=== PATIENT | female | born 1945 | race Caucasian/White ===

== ENCOUNTER 2023-03-24 08:50 | Emergency (ER) | payer OTHER ==
[~2023-03-24] VITALS: Ht 147.3 cm; Wt 37.0 kg
[2023-03-24 10:01] LABS: Basophils # (auto) 0 10 ^3/uL (0-0.2); Eosinophils # (auto) 0 10 ^3/uL (0-0.8); Hemoglobin 11.7 g/dL (12.2-16.2); Lymphocytes # (auto) 1.1 10 ^3/uL (0.4-5.4); Mean Corpuscular Volume 71.1 fL (80.0-100.0); Monocytes # (auto) 0.6 10 ^3/uL (0-1.3); Neutrophils # (auto) 4.8 10 ^3/uL (1.6-8.6); Nucleated Red Blood Cells % 0.1 %
[2023-03-24 10:04] LABS: Basophils % (auto) 0.1 % (0.0-2.0); Eosinophils % (auto) 0.5 % (0.0-7.0); Hematocrit 36.5 % (36.0-46.0); Lymphocytes % (auto) 16.9 % (10.0-50.0); Mean Corpuscular Hemoglobin 22.8 pg (28.0-32.0); Mean Corpuscular Hgb Conc. 32.1 g/dL (32.0-36.0); Monocytes % (auto) 9.1 % (0.0-12.0); Neutrophils % (auto) 73.4 % (37.0-80.0); Red Blood Cells 5.14 10^6/uL (4.0-5.20); Red Cell Distribution Width 19.6 % (11.8-14.3); White Blood Cell 6.5 10^3/uL (4.4-10.8)
[2023-03-24 10:31] LABS: Calcium 8.7 mg/dL (8.5-10.1); Magnesium 2.4 mg/dL (1.6-2.6); Potassium 3.9 mmol/L (3.5-5.1)
[2023-03-24 10:37] LABS: BUN/Creatinine Ratio 29.6 (10.0-20.0); Bilirubin, Total 0.5 mg/dL (0.2-1.0); Total Protein 6.6 g/dL (6.4-8.2)
[2023-03-24 15:02] LABS: Urine Bacteria NONE SEEN /hpf (None Seen); Urine Blood Negative /uL (Negative); Urine Mucus FEW (None Seen); Urine Specific Gravity 1.022 (1.001-1.035); Urine WBC 29 /hpf (0 - 5)
[2023-03-24] MEDS ORDERED: CIPR-173 PO (16:25)
[2023-03-24 18:04] VITALS: BP 121/79
== END 2023-03-24 18:05 ==
LOC: ER 08:50 → EDBD 08:50 → ER 18:05
DX: R63.0 Anorexia (principal); R62.7 Adult failure to thrive
CPT/HCPCS: 36415; 71045; 74176; 80053; 81001; 83735; 83880; 84484; 85025

== ENCOUNTER 2023-04-24 13:05 | Emergency (ER) | payer OTHER ==
[~2023-04-24] VITALS: Ht 152.4 cm; Wt 35.5 kg
[~2023-04-24 13:05] MED LIST: CIPR-173 PO
[2023-04-24 16:16] LABS: Basophils # (auto) 0.1 10 ^3/uL (0-0.2); Eosinophils # (auto) 0.1 10 ^3/uL (0-0.8); Eosinophils % (auto) 0.9 % (0.0-7.0); Hemoglobin 12.7 g/dL (12.2-16.2); Lymphocytes # (auto) 1.3 10 ^3/uL (0.4-5.4); Lymphocytes % (auto) 14.4 % (10.0-50.0); Mean Corpuscular Hemoglobin 23.4 pg (28.0-32.0); Mean Corpuscular Hgb Conc. 31.8 g/dL (32.0-36.0); Mean Corpuscular Volume 73.4 fL (80.0-100.0); Monocytes # (auto) 0.8 10 ^3/uL (0-1.3); Monocytes % (auto) 9.4 % (0.0-12.0); Neutrophils # (auto) 6.6 10 ^3/uL (1.6-8.6); Neutrophils % (auto) 74.3 % (37.0-80.0); Nucleated Red Blood Cells % 0.1 %; Red Blood Cells 5.44 10^6/uL (4.0-5.20); Red Cell Distribution Width 20.4 % (11.8-14.3); White Blood Cell 8.9 10^3/uL (4.4-10.8)
[2023-04-24 16:36] LABS: Albumin 3.6 g/dL (3.4-5.0); Calcium 9.3 mg/dL (8.5-10.1); Potassium 4.3 mmol/L (3.5-5.1)
[2023-04-24 16:39] LABS: Bilirubin, Total 0.4 mg/dL (0.2-1.0)
[2023-04-24 19:17] LABS: Urine Bacteria NONE SEEN /hpf (None Seen); Urine Blood Negative /uL (Negative); Urine Mucus FEW (None Seen); Urine Specific Gravity 1.023 (1.001-1.035); Urine WBC 11 /hpf (0 - 5)
[2023-04-24] MEDS ORDERED: ALPRAZolam 0.25 MG TAB PO ONE (21:00)
[2023-04-24] MEDS ORDERED: ALPRAZolam 0.25 MG TAB PO PRN (21:30)
[2023-04-25 10:48] VITALS: BP 147/65
== END 2023-04-25 11:18 | disposition short-term general hospital (02) ==
LOC: ER 13:05
DX: R45.851 Suicidal ideations (principal)
CPT/HCPCS: 36415; 71045; 80053; 81001; 85025

== ENCOUNTER → 2024-02-26 | Outpatient (CLI) | payer OTHER ==
[2024-02-26 08:17] LABS: Basophils # (auto) 0 10 ^3/uL (0-0.2); Basophils % (auto) 0.7 % (0.0-2.0); Eosinophils # (auto) 0.1 10 ^3/uL (0-0.8); Eosinophils % (auto) 1.9 % (0.0-7.0); Hematocrit 44.7 % (36.0-46.0); Hemoglobin 14.8 g/dL (12.2-16.2); Lymphocytes # (auto) 1.2 10 ^3/uL (0.4-5.4); Lymphocytes % (auto) 19.4 % (10.0-50.0); Mean Corpuscular Hemoglobin 29.9 pg (28.0-32.0); Mean Corpuscular Hgb Conc. 33.2 g/dL (32.0-36.0); Monocytes # (auto) 0.5 10 ^3/uL (0-1.3); Monocytes % (auto) 8.8 % (0.0-12.0); Neutrophils # (auto) 4.3 10 ^3/uL (1.6-8.6); Neutrophils % (auto) 69.2 % (37.0-80.0); Nucleated Red Blood Cells % 0.2 %; Red Blood Cells 4.96 10^6/uL (4.0-5.20); Red Cell Distribution Width 13.2 % (11.8-14.3); White Blood Cell 6.2 10^3/uL (4.4-10.8)
[2024-02-26 08:47] LABS: Urine Bacteria MANY /hpf (None Seen); Urine Blood 1+ /uL (Negative); Urine Budding Yeast OCCASIONAL /hpf (None Seen); Urine Clarity Ex.Turbid (Clear); Urine Color Light-Orange (Yellow); Urine Mucus MANY (None Seen); Urine Protein, UAD 1+ (Negative); Urine Urobilinogen Normal (Negative); Urine WBC 611 /hpf (0 - 5); Urine WBC Clumps PRESENT /hpf (None Seen); Urine pH 5.5 (5.0-9.0)
[2024-02-26 09:15] LABS: Alanine Aminotransferase 12 U/L (7-40); Albumin 4.2 g/dL (3.2-4.8); Alkaline Phosphatase 100 U/L (46-116); Anion Gap 5 (5-15); Aspartate Aminotransferase 13 U/L (13-40); BUN/Creatinine Ratio 16.9 (10.0-20.0); Blood Urea Nitrogen 12 mg/dL (9-23); Calcium 9.9 mg/dL (8.5-10.1); Carbon Dioxide 26 mmol/L (20-30); Chloride 109 mmol/L (98-107); Glucose 106 mg/dL (74-106); LDL Cholesterol 175 mg/dL (< 100); Sodium 140 mmol/L (136-145); Triglycerides 99 mg/dL (< 150)
[2024-02-26 09:16] LABS: Bilirubin, Total 0.6 mg/dL (0.2-1.0); Cholesterol 244 mg/dL (< 200); HDL Cholesterol 57 mg/dL (40-59); Total Protein 6.8 g/dL (5.7-8.2)
== END | disposition home or self-care (01) ==
LOC: LAB 07:52
PROVIDERS: ATTEND Internal Medicine
DX: Z00.00 Encounter for general adult medical examination without abnormal findings (principal); F31.9 Bipolar disorder, unspecified; F41.9 Anxiety disorder, unspecified; N39.0 Urinary tract infection, site not specified; D64.9 Anemia, unspecified
CPT/HCPCS: 36415; 80053; 80061; 81001; 83036; 84443; 85025; 87086

== ENCOUNTER → 2024-07-29 | Outpatient (CLI) | payer OTHER ==
[2024-07-29 08:54] LABS: Cholesterol 227 mg/dL (< 200); Folate (Folic Acid) 14.32 ng/mL (>5.38)
[2024-07-29 08:55] LABS: Triglycerides 126 mg/dL (< 150)
[2024-07-29 08:56] LABS: LDL Cholesterol 171 mg/dL (< 100)
[2024-07-29 08:57] LABS: HDL Cholesterol 47 mg/dL (40-59)
[2024-07-29 12:37] LABS: Urine Bacteria MOD /hpf (None Seen); Urine Blood TRACE /uL (Negative); Urine Clarity Turbid (Clear); Urine Color Colorless (Yellow); Urine Protein, UAD Negative (Negative); Urine Specific Gravity 1.006 (1.001-1.035); Urine Urobilinogen Normal (Negative); Urine WBC 8 /hpf (0 - 5); Urine pH 5.5 (5.0-9.0)
== END | disposition home or self-care (01) ==
LOC: LAB 07:35
PROVIDERS: ATTEND Internal Medicine
DX: F41.9 Anxiety disorder, unspecified (principal); F31.9 Bipolar disorder, unspecified; Z00.00 Encounter for general adult medical examination without abnormal findings
CPT/HCPCS: 36415; 80061; 81001; 82306; 82607; 82746

== ENCOUNTER → 2024-08-01 | Outpatient (CLI) | payer OTHER | END | disposition home or self-care (01) | LOC: LAB 15:12 | PROVIDERS: ATTEND Internal Medicine | DX: N39.0 Urinary tract infection, site not specified (principal) | CPT/HCPCS: 87086 ==

== ENCOUNTER 2024-11-15 05:49 | Emergency (ER) | payer OTHER ==
[~2024-11-15] VITALS: Ht 147.3 cm; Wt 36.9 kg
--- NOTE | 2024-11-15 07:47 | DVH ---
CLINICAL INFORMATION: 79 years old, Female; fall injury. TECHNIQUE: Axial imaging was obtained through the brain without contrast. Coronal and sagittal refor matted images were obtained, reviewed, and stored. Images were reviewed in brain and bone windows. A ll CT scans at this medical facility are performed using dose modulation techniques as appropriate to a performed exam including the following: Automated exposure control was utilized; adjustment of the MA and/or KV according to patient size; and use of iterative reconstruction technique. CTDIvol = 49.56 mGy DLP = 793.55 mGy-cm COMPARISON: None FINDINGS: There is no acute intracranial hemorrhage or extraaxial fluid collection. No mass effect o r midline shift. Scattered areas of hypoattenuation are seen in the periventricular and subcortical w danyel matter, which are nonspecific but most likely sequelae of small vessel ischemic disease. Atrophi c changes with prominence of the ventricles and widening of the sulci. The calvarium is unremarka ble. Paranasal sinuses and mastoid air cells are clear. IMPRESSION: 1. No CT evidence of acute intracranial abnormality. 2. Nonacute findings as detailed above.
--- NOTE | 2024-11-15 07:51 | DVH ---
EXAM: XR Chest, 1 View CLINICAL INDICATION: SOB TECHNIQUE: Frontal view of the chest. COMPARISON: XY CHEST PORTABLE on DOS: 04/24/23, XY CHEST PORTABLE on DOS: 03/24/23 FINDINGS: LUNGS AND PLEURAL SPACES: Right super hilar airspace disease could be pneumonia. Underlying nodules cannot be excluded. No pneumothorax. HEART: Unremarkable. No cardiomegaly. MEDIASTINUM: Unremarkable. Normal mediastinal contour. BONES/JOINTS: Unremarkable. No acute fracture. OTHER FINDINGS: . . IMPRESSION: Right super hilar airspace disease could be pneumonia. Underlying nodules cannot be excluded. HS:Y
--- NOTE | 2024-11-15 07:53 | DVH ---
EXAM: XR Right Shoulder Complete, 2 or More Views CLINICAL INDICATION: FALL TECHNIQUE: Two or more views of the right shoulder. COMPARISON: None FINDINGS: BONES/JOINTS: Focal regularity of the distal clavicle and create to be ossific could be not displace d fractures. Clinical correlation with point tenderness is recommended. No dislocation. SOFT TISSUES: Unremarkable. OTHER FINDINGS: . . IMPRESSION: Focal regularity of the distal clavicle and create to be ossific could be not displaced fractures. Cl inical correlation with point tenderness is recommended. HS:Y
[2024-11-15 08:02] VITALS: TEMP 98.3
--- NOTE | 2024-11-15 08:15 | ED.PDOC ---
History of Present Illness HPI Comments 79 y/o F, with a Hx of anemia, anxiety, breast CA s/p mastectomy, dementia, MDD, seizures, and snf resident, is [id number] relatives for c/o generalized weakness, fatigue, shortness of breath, and right shoulder and upper arm pain s/p mechanica fall and injury, today. Per relatives, patient has been weak and fatigue since 11/05/24 and sustained right shoulder and upper arm pain after she endured 2x unwitnessed mechanical falls at SNF she reside in. Within the past 2x days, patient was noted to have begun having difficulty breathing and getting more progressively weak and being unable to move her right shoulder and arm as well. Patient has no other reported additional injuries, fever, chills, nausea, vomiting, urinary symptoms, or other associated symptoms or modifiers at this time. 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 Family History Family History: Reviewed,noncontributory to illness Social History Smoker: Non-Smoker Alcohol: Denies ETOH Use Drugs: Denies Drug Use Lives In: [facility] Constitutional: reports: fatigue Respiratory: reports: shortness of breath Neurological: reports: weakness Musculoskeletal: reports: others (right shoulder and upper arm pain w/associated decrease range of motion ) All Other Systems: Reviewed and Negative (negative unless otherwise stated above or in HPI) Physical Exam General Appearance: No Apparent Distress, Thin, Other (patient is quiet, not talkative at time of assessment) HEENT: Normal ENT Inspection, Pharynx Normal, TMs Normal Neck: Full Range of Motion, Non-Tender, Normal, Normal Inspection Respiratory: Chest Non-Tender, Lungs Clear, No Accessory Muscle Use, No Respiratory Distress, Normal Breath Sounds Cardiovascular: No Edema, No JVD, No Murmur, No Gallop, Normal Peripheral Pu lses, Regular Rate/Rhythm Breast Exam: Deferred Gastrointestinal: No Organomegaly, Non Tender, No Pulsatile Mass, Normal Bowel Sounds, Soft Genitalia: Deferred Pelvic: Deferred Rectal: Deferred Extremities: Decreased range of motion (range of motion of right shoulder is decreased by 50%), No calf tenderness, Normal capillary refill, Non-tender, No pedal edema Musculoskeletal : Apperance: Normal Neurologic: Alert, buggy operator II-XII nml as Tested, No Motor Deficits, Normal Affect, Normal Mood, No Sensory Deficits Cerebellar Function: Normal Reflexes: Normal Skin: Dry, Normal Color, Warm Lymphatic: No Adenopathy Was a procedure done? Was a procedure done?: No EKG EKG : Pulse Rate (adult): 85 [place]: Normal Cardiac Rhythm: NSR Block: None Hypertrophy: None ST: Normal Differential Dx Considerations may include: viral syndrome, URI, fractures, dislocation, contusion, bruising, PNA, bronchitis, pleural effusions, covid19 X-Ray, Labs, Meds, VS Vital Signs Date Time Temp Pulse Resp B/P (MAP) Pulse Ox O2 Delivery O2 Flow Rate FiO2 11/15/24 08:15 85 11/15/24 08:02 Room Air* 0 21 11/15/24 08:02 98.3 85 14 121/65 (83) 92 98.3 11/15/24 08:02 85 14 92 Room Air 11/15/24 06:10 85 11/15/24 05:58 98.6 88 12 114/72 (86) 92 Lab Test 11/15/24 10:07 11/15/24 07:54 11/15/24 07:07 11/15/24 06:02 Range/Units Troponin I High Sensitivity Pending 3 L </=34 ng/L White Blood Count 6.9 4.4-10.8 10^3/uL Red Blood Count 4.81 4.0-5.20 10^6/uL Hemoglobin 14.8 12.2-16.2 g/dL Hematocrit 43.2 36.0-46.0 % Mean Corpuscular Volume 89.9 80.0-100.0 fL Mean Corpuscular Hemoglobin 30.8 28.0-32.0 pg Mean Corpuscular Hemoglobin Concent 34.3 32.0-36.0 g/dL Red Cell Distribution Width 12.5 11.8-14.3 % Platelet Count 414 140-450 10^3/uL Mean Platelet Volume 7.3 6.9-10.8 fL Neutrophils (%) (Auto) 72.7 37.0-80.0 % Lymphocytes (%) (Auto) 13.0 10.0-50.0 % Monocytes (%) (Auto) 11.9 0.0-12.0 % Eosinophils (%) (Auto) 1.8 0.0-7.0 % Basophils (%) (Auto) 0.6 0.0-2.0 % Neutrophils # (Auto) 5.0 1.6-8.6 10 ^3/uL Lymphocytes # (Auto) 0.9 0.4-5.4 10 ^3/uL Monocytes # (Auto) 0.8 0-1.3 10 ^3/uL Eosinophils # (Auto) 0.1 0-0.8 10 ^3/uL Basophils # (Auto) 0 0-0.2 10 ^3/uL Nucleated Red Blood Cells 0.1 % Sodium Level 141 136-145 mmol/L Potassium Level 3.3 L 3.5-5.1 mmol/L Chloride Level 108 H 98-107 mmol/L Carbon Dioxide Level 26 20-31 mmol/L Anion Gap 7 5-15 Blood Urea Nitrogen 15 9-23 mg/dL Creatinine 0.66 0.550-1.02 mg/dL Glomerular Filtration Rate Calc 89 >90 mL/min BUN/Creatinine Ratio 22.7 H 10.0-20.0 Serum Glucose 111 H 74-106 mg/dL Calcium Level 10.1 8.7-10.4 mg/dL Total Bilirubin 0.8 0.2-1.0 mg/dL Aspartate Amino Transferase (AST) 11 L 13-40 U/L Alanine Aminotransferase (ALT) 9 7-40 U/L Alkaline Phosphatase 87 46-116 U/L Total Protein 7.1 5.7-8.2 g/dL Albumin 4.0 3.2-4.8 g/dL Urine Color Yellow Yellow Urine Clarity Turbid H Clear Urine pH 5.5 5.0-9.0 Urine Specific [place] 1.024 1.001-1.035 Urine Protein Trace H Negative Urine Ketones 1+ H Negative Urine Blood Negative Negative /uL Urine Nitrite 2+ H Negative Urine Bilirubin Negative Negative Urine Urobilinogen 4 H Negative mg/dL Urine Leukocyte Esterase 3+ Negative /uL Urine RBC 8 0 - 4 /hpf Urine WBC 112 0 - 5 /hpf Urine Squamous Epithelial Cells Mod <5 /hpf Urine Bacteria Many H None Seen /hpf Urine Hyaline Casts Few 0 - 2 /lpf Urine Mucus Few None Seen Urine Glucose Normal Normal mg/dL POC Glucose 102 70-106 mg/dl [place] [address] Ph: [phone] DIAGNOSTIC IMAGING Diagnostic Imaging Report : [id number] Signed PATIENT: ALBIN WASHINGTON ACCT: [id number] UNIT: [id number] : 1945 LOC: ER ROOM / BED: / AGE / SEX: 79 / F ADM STATUS: REG ER SERVICE [id number] ORDERING PHYSICIAN: JORDANA OLIVEIRA MD PROCEDURE(s): RSHD2 - R SHOULDER 2+ VIEW XRAY REASON: FALL ORDER NUMBER(s): [id number], ACCESSION NUMBER(s): [id number] EXAM: XR Right Shoulder Complete, 2 or More Views CLINICAL INDICATION: FALL TECHNIQUE: Two or more views of the right shoulder. COMPARISON: None FINDINGS: BONES/JOINTS: Focal regularity of the distal clavicle and create to be ossific could be not displaced fractures. Clinical correlation with point tenderness is recommended. No dislocation. SOFT TISSUES: Unremarkable. OTHER FINDINGS: . . IMPRESSION: Focal regularity of the distal clavicle and create to be ossific could be not displaced fractures. Clinical correlation with point tenderness is recommended. HS:Y ATED BY: LETI LIPSCOMB MD DICTATED DATE/TIME: 11/15/24749 SIGNED BY: LETI LIPSCOMB MD SIGNED DATE/TIME: 11/15/24749 CC: [address] [address] Ph: [phone] DIAGNOSTIC IMAGING Diagnostic Imaging Report : [id number] Signed PATIENT: ALBIN WASHINGTON ACCT: [id number] UNIT: [id number] : 1945 LOC: ER ROOM / BED: / AGE / SEX: 79 / F ADM STATUS: REG ER SERVICE 6 ORDERING PHYSICIAN: JORDANA OLIVEIRA MD PROCEDURE(s): HWOCT - HEAD WITHOUT CONTRAST REASON: FALL ORDER NUMBER(s): [id number], ACCESSION NUMBER(s): [id number] CLINICAL INFORMATION: 79 years old, Female; fall injury. TECHNIQUE: Axial imaging was obtained through the brain without contrast. Coronal and sagittal reformatted images were obtained, reviewed, and stored. Images were reviewed in brain and bone windows. All CT scans at this medical facility are performed using dose modulation techniques as appropriate to a performed exam including the following: Automated exposure control was utilized; adjustment of the MA and/or KV according to patient size; and use of iterative reconstruction technique. CTDIvol = 49.56 mGy DLP = 793.55 mGy-cm COMPARISON: None FINDINGS: There is no acute intracranial hemorrhage or extraaxial fluid collection. No mass effect or midline shift. Scattered areas of hypoattenuation are seen in the periventricular and subcortical white matter, which are nonspecific but most likely sequelae of small vessel ischemic disease. Atrophic changes with prominence of the ventricles and widening of the sulci. The calvarium is unremarkable. Paranasal sinuses and mastoid air cells are clear. IMPRESSION: 1. No CT evidence of acute intracranial abnormality. 2. Nonacute findings as detailed above. ATED BY: NATHANIEL GHOSH DO DICTATED DATE/TIME: 11/15/24743 SIGNED BY: NATHANIEL GHOSH DO SIGNED DATE/TIME: 11/15/24743 CC: [place] [address] Ph: [phone] DIAGNOSTIC IMAGING Diagnostic Imaging Report : [id number] Signed PATIENT: ALBIN WASHINGTON ACCT: [id number] UNIT: [id number] : 1945 LOC: ER ROOM / BED: / AGE / SEX: 79 / F ADM STATUS: REG ER SERVICE 6 ORDERING PHYSICIAN: JORDANA OLIVEIRA MD PROCEDURE(s): CXRP - CHEST PORTABLE REASON: SOB ORDER NUMBER(s): [id number], ACCESSION NUMBER(s): [id number] EXAM: XR Chest, 1 View CLINICAL INDICATION: SOB TECHNIQUE: Frontal view of the chest. COMPARISON: XY CHEST PORTABLE on DOS: 04/24/23, XY CHEST PORTABLE on DOS: 03/24/23 FINDINGS: LUNGS AND PLEURAL SPACES: Right super hilar airspace disease could be pneumonia. Underlying nodules cannot be excluded. No pneumothorax. HEART: Unremarkable. No cardiomegaly. MEDIASTINUM: Unremarkable. Normal mediastinal contour. BONES/JOINTS: Unremarkable. No acute fracture. OTHER FINDINGS: . . IMPRESSION: Right super hilar airspace disease could be pneumonia. Underlying nodules cannot be excluded. HS:Y ATED BY: LETI LIPSCOMB MD DICTATED DATE/TIME: 11/15/24748 SIGNED BY: LETI LIPSCOMB MD SIGNED DATE/TIME: 11/15/24748 CC: Time of 1ST Reevaluation: 07:00 Reevaluation 1ST: Unchanged Patient Education/Counseling: Other (dementia ) Family Education/Counseling: Diagnosis, Treatment Departure 1 Departure Time of Disposition: 10:43 Impression: Primary Impression: Fracture of humeral head, right, closed Additional Impression: Pulmonary nodule Disposition: 01 HOME / SELF CARE / HOMELESS Condition: Stable Additional Instructions: Thank you for visiting our Emergency Room. I wish you full and complete recovery. Please follow the following instructions: 1. Take your medication bottles with you to EVERY DOCTOR'S VISIT (including your primary doctor). 2. Please follow up with your primary doctor in 2-3 days or sooner if symptoms do not improve. 3. Please read all the papers given to you at the time of the discharge so that you understand your condition better. 4. Please note that the emergency room visits are focused and not necessarily comprehensive. Therefore, it is possible that some occult medical conditions may go undiagnosed in the ER. 5. The emergency room visits are not and should not be thought of as replacement for regular visits with your primary doctor. 6. Therefore, it is absolutely critical that you follows up with your primary doctor on regular basis to make sure you receives a complete and comprehensive care. 7. I recommended the you take the hospital discharge papers to your primary care physician and other doctors' offices with you. 8. Go to your nearest emergency room if you think your condition gets worse or you think your condition is an emergency. Discharged With: Self Critical Care Note Critical Care Time?: Yes (45 min-critical care time only) Stability Stability form required: No Heart Score Heart Score: Heart Score Response (Comments) Value History N/A 0 EKG N/A 0 Age N/A 0 Risk Factors N/A 0 Troponin N/A 0 Total 0 I personally scribed for JORDANA OLIVEIRA MD ([email or web address]) on 11/15/24 at 08:15. Electronically submitted by Levar Altman ([email or web address]). JORDANA OLIVEIRA MD Nov 15, 2024 08:15
[2024-11-15 08:18] LABS: Basophils # (auto) 0 10 ^3/uL (0-0.2); Basophils % (auto) 0.6 % (0.0-2.0); Eosinophils # (auto) 0.1 10 ^3/uL (0-0.8); Eosinophils % (auto) 1.8 % (0.0-7.0); Hematocrit 43.2 % (36.0-46.0); Hemoglobin 14.8 g/dL (12.2-16.2); Lymphocytes # (auto) 0.9 10 ^3/uL (0.4-5.4); Mean Corpuscular Hemoglobin 30.8 pg (28.0-32.0); Mean Corpuscular Hgb Conc. 34.3 g/dL (32.0-36.0); Mean Corpuscular Volume 89.9 fL (80.0-100.0); Monocytes # (auto) 0.8 10 ^3/uL (0-1.3); Monocytes % (auto) 11.9 % (0.0-12.0); Neutrophils % (auto) 72.7 % (37.0-80.0); Nucleated Red Blood Cells % 0.1 %; Platelet Count (auto) 414 10^3/uL (140-450); Red Blood Cells 4.81 10^6/uL (4.0-5.20); Red Cell Distribution Width 12.5 % (11.8-14.3); White Blood Cell 6.9 10^3/uL (4.4-10.8)
[2024-11-15 08:39] LABS: Alkaline Phosphatase 87 U/L (46-116); Anion Gap 7 (5-15); BUN/Creatinine Ratio 22.7 (10.0-20.0); Bilirubin, Total 0.8 mg/dL (0.2-1.0); Blood Urea Nitrogen 15 mg/dL (9-23); Calcium 10.1 mg/dL (8.7-10.4); Carbon Dioxide 26 mmol/L (20-31); Sodium 141 mmol/L (136-145)
[2024-11-15 08:41] LABS: Alanine Aminotransferase 9 U/L (7-40); Aspartate Aminotransferase 11 U/L (13-40); Chloride 108 mmol/L (98-107); Glucose 111 mg/dL (74-106); Potassium 3.3 mmol/L (3.5-5.1)
[2024-11-15 09:06] LABS: Urine Bacteria MANY /hpf (None Seen); Urine Blood Negative /uL (Negative); Urine Clarity Turbid (Clear); Urine Color Yellow (Yellow); Urine Hyaline Cast FEW /lpf (0 - 2); Urine Mucus FEW (None Seen); Urine Protein, UAD TRACE (Negative); Urine Specific Gravity 1.024 (1.001-1.035); Urine Squamous Epithelial Cell MOD /hpf (<5); Urine Urobilinogen 4 mg/dL (Negative); Urine WBC 112 /hpf (0 - 5); Urine pH 5.5 (5.0-9.0)
[2024-11-15 09:24] LABS: Total Protein 7.1 g/dL (5.7-8.2)
[2024-11-15 11:02] VITALS: BP 127/80; PULSE 89; RESP 15; O2SAT 95
[2024-11-15] MEDS ORDERED: ACE650RS PR (11:15)
--- NOTE | 2024-11-16 07:18 | ECG ---
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
== END 2024-11-15 11:10 | disposition home or self-care (01) ==
LOC: ER 05:49
DX: S42.391A Other fracture of shaft of right humerus, initial encounter for closed fracture (principal); F03.90 Unspecified dementia, unspecified severity, without behavioral disturbance, psychotic disturbance, mood disturbance, and anxiety; D46.9 Myelodysplastic syndrome, unspecified; F41.9 Anxiety disorder, unspecified; Z90.49 Acquired absence of other specified parts of digestive tract; Z85.3 Personal history of malignant neoplasm of breast; Z98.890 Other specified postprocedural states; W18.39XA Other fall on same level, initial encounter; Y93.89 Activity, other specified; Y92.89 Other specified places as the place of occurrence of the external cause; Y99.8 Other external cause status
CPT/HCPCS: 36415; 70450; 71045; 73030; 80053; 81001; 82962; 84484; 85025; 93005

== ENCOUNTER → 2024-12-15 | Outpatient (CLI) | payer OTHER ==
[~2024-12-15] MED LIST changes: +ACE650RS PR
== END | disposition home or self-care (01) ==
LOC: LAB 05:48
PROVIDERS: ATTEND Anesthesiology
DX: N39.0 Urinary tract infection, site not specified (principal)
CPT/HCPCS: 87086

== ENCOUNTER → 2025-01-27 | Outpatient (CLI) | payer OTHER | END | disposition home or self-care (01) | LOC: LAB 16:27 | PROVIDERS: ATTEND Nurse Practitioner | DX: N39.0 Urinary tract infection, site not specified (principal) | CPT/HCPCS: 87086 ==

== ENCOUNTER 2025-04-14 19:51 | Emergency (ER) | payer OTHER ==
[~2025-04-14] VITALS: Ht 149.9 cm; Wt 54.5 kg
[2025-04-14 20:11] VITALS: BP 104/62; PULSE 92; RESP 16; TEMP 98; O2SAT 95
--- NOTE | 2025-04-14 20:24 | ED.PDOC ---
History of Present Illness HPI Comments 79 year old Female with a Hx of Dementia, HTN, and Depression was BIBA for the c/c of a Fall Injury. Per EMS pt was at [facility] facility where she decided to get up from her bed to retrieve a second blanket, where she had a spontaneous mechanical fall. Per EMS pt fell onto a dresser before hitting the floor. Pt is noted to be a poor historian and is A&Ox2 at this time. No other associated symptoms, modifiers, recent injuries or sick contacts present at this time. Chief Complaint: Fall Injury Time Seen by MD: 20:18 Primary Care Provider: KAREL Reviewed Notes: Nurses Notes, Marketing Researcher Notes, Medications, Allergies Allergies: Coded Allergies: Pseudoephedrine (Verified Allergy, Unknown, 11/15/24) Home Meds Active Scripts Acetaminophen (Tylenol) 650 Mg Rc, 650 MG SD Q6HPRN PRN for 12 Days, #90 SUPP .RECT Prov:JORDANA OLIVEIRA MD 11/15/24 Ciprofloxacin Hcl (Cipro) 500 Mg Tab, 500 MG PO BID for 10 Days, #20 TAB Prov:LORNA MORRISSEY MD 03/24/23 Information Source: Patient, Emergency Med Personnel Mode of Arrival: EMS Severity: Moderate Timing: Hours Duration: Since onset, Hours Prehospital treatment: Accucheck Vital Signs Vital Signs Date Time Temp Pulse Resp B/P (MAP) Pulse Ox O2 Delivery O2 Flow Rate FiO2 04/14/25 20:11 98.0 92 16 104/62 (76) 95 98.0 Physical Exam General: Awake, A&Ox2. No acute distress. Skin: Skin in warm, dry and intact. Appropriate color for ethnicity. HEENT: The head is normocephalic and atraumatic. Conjunctivae are clear without exudates or hemorrhage. Sclera is non-icteric. EOM are intact. No signs of nystagmus. Eyelids are normal in appearance without swelling or lesions. Oral mucosa is pink and moist Neck: The neck is supple with normal range of motion. No JVD. Cardiac: Heart rate and rhythm are normal. No murmurs, gallops, or rubs are auscultated. Respiratory: No signs of respiratory distress. Lung sounds are clear in all lobes bilaterally without rales, rhonchi, or wheezes. Abdominal: Abdomen is soft, non-tender without distention, guarding or rigidity. Bowel sounds are present and normoactive in all four quadrants. Extremities: Upper and lower extremities are atraumatic in appearance without deformity or edema. Neurological: The patient is awake, alert Speech is clear. There is no facial asymmetry. Pt is noted to be a poor historian due to her Dementia, no other neurological deficiencies noted at this time. Psychiatric: Appropriate mood and affect. Good judgement and insight. Review of Systems: REVIEW OF SYSTEMS: No fever, no chills, or fatigue HEENT: No sore throat, no earache, no congestion, no neck pain. Cardiac: No chest pain. No palpitations. Lungs: No shortness of breath, no cough. GI: No nausea, no vomiting, no diarrhea, no constipation, no abdominal pain : No dysuria, frequency, or urgency. No hematuria. Musculoskeletal: No joint pain , no joint swelling, no extremity edema. Skin: No rash, no itching. 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 Was a procedure done?: No Differential Dx Considerations may include: DDX includes MSK trauma, facial fractures, ICH or traumatic SAH, C-spine injury, other X-Ray, Labs, Meds, VS Vital Signs Date Time Temp Pulse Resp B/P (MAP) Pulse Ox O2 Delivery O2 Flow Rate FiO2 04/14/25 20:11 98.0 92 16 104/62 (76) 95 98.0 EXAM: CT CERVICAL WITHOUT CONTRAST HISTORY: head injury fall neck injury COMPARISON: None CTDIvol 52.41 mGy, DLP 1041.71 mGy*cm. TECHNIQUE: Multiple axial CT images of the spine were obtained using bone algorithm. Axial and coronal reformatting was done. Bone and soft tissue windows were reviewed. FINDINGS: Moderate dextroscoliosis of the cervical/thoracic spine as its apex about the T1 vertebral body. There is reversal of normal cervical lordosis. No CT evidence of definite acute fracture, spinal dislocation, or significant appearing acute subluxation is seen. The visualized paraspinal soft tissues are grossly unremarkable. Advanced degenerative changes of the cervical spine include severe disc height loss at the C5-C6 and C6-C7 levels with adjacent endplate sclerosis and anterior osteophytosis. Anterolisthesis of C5 on C6 measures 0.3 cm. Atherosclerotic vascular calcifications within the bilateral carotid bulbs and aortic arch. IMPRESSION: 1. No definite CT evidence of acute fracture or dislocation of the bony cervical spine. 2. Advanced degenerative change, reversal of lordosis and dextroscoliosis of the cervical spine. ATED BY: PAPA LEON MD DICTATED DATE/TIME: 04/14/252356 SIGNED BY: PAPA LEON MD SIGNED DATE/TIME: 04/14/252356 CC: EXAM: CT HEAD WITHOUT CONTRAST INDICATION: head injury fall neck injury TECHNIQUE: CT of the head without intravenous contrast. Radiation Dose Information: CT Dose: CTDI volume is 8.36 mGy. Dose-length product is 1041.71 mGy*cm The dose indicators for CT are the volume Computed Tomography (CT) Dose Index (CTDIvol) and the Dose Length Product (DLP), and are measured in units of mGy a nd mGy-cm, respectively. These indicators are not patient dose, but values generated from the CT scanner acquisition factors. The report includes radiation exposure data for exposures received during this examination. COMPARISON: CT HEAD WITHOUT CONTRAST on DOS: 11/15/24 FINDINGS: There is no evidence of acute intracranial hemorrhage, extra-axial collection, mass effect, midline shift, herniation or hydrocephalus. The ventricles, sulci and cisterns are age appropriate. The dailey-white differentiation is intact. Patchy periventricular and subcortical white matter hypoattenuation is nonspecific but may be related to small vessel ischemic disease. The visualized paranasal sinuses and mastoid air cells are clear. The surrounding soft tissues and osseous structures are unremarkable. IMPRESSION: 1. No acute intracranial abnormality. ATED BY: ROMY DAVIS Jr., DO DICTATED DATE/TIME: 04/14/252254 SIGNED BY: ROMY DAVIS Jr., DO SIGNED DATE/TIME: 04/14/252254 CC: Time of 1ST Reevaluation: 20:48 Reevaluation 1ST: Unchanged Patient Education/Counseling: Need For Follow Up Family Education/Counseling: No Family Present Departure 1 Departure Time of Disposition: 01:56 Impression: Primary Impression: Fall Additional Impression: Head injury Disposition: 01 HOME / SELF CARE / HOMELESS Condition: Stable Additional Instructions: ED DISCHARGE INSTRUCTIONS Instructions: Please read all instructions provided in this packet carefully. Although you have been discharged from the Emergency Department, this does not mean that you have a "clean bill of health". No definitive diagnosis for your symptoms has been made today. It is possible that you are in the process of developing a serious illness. This is why you must return to the ED without fail if any new or worsening symptoms (especially if your symptoms include chest pain, trouble breathing, abdominal pain, fever, headache, confusion, trouble seeing, or trouble walking) It is also very important that you see a primary care doctor within the next 3-5 days to follow up. If you are unable to get an appointment, return to the ED for re-evaluation. Comments Seven 9-year-old female with head injury. Patient neurologically intact other than baseline dementia. Patient well-appearing, nontoxic. Advised prompt follow-up with PCP, return to the ED with any new, worsening or concerning symptoms. Results discussed with the patient's son via phone Critical Care Note Critical Care Time?: No Stability Stability form required: No Heart Score Heart Score: Heart Score Response (Comments) Value History N/A 0 EKG N/A 0 Age N/A 0 Risk Factors N/A 0 Troponin N/A 0 Total 0 I personally scribed for NINA PIMENTEL MD ([email or web address]) on 04/14/25 at 20:24. Electronically submitted by Arnoldo Espino ([email or web address]). NINA PIMENTEL MD Apr 14, 2025 20:24
--- NOTE | 2025-04-14 22:58 | DVH ---
EXAM: CT HEAD WITHOUT CONTRAST INDICATION: head injury fall neck injury TECHNIQUE: CT of the head without intravenous contrast. Radiation Dose Information: CT Dose: CTDI volume is 8.36 mGy. Dose-length product is 1041.71 mGy*cm The dose indicators for CT are the volume Computed Tomography (CT) Dose Index (CTDIvol) and the Dose Length Product (DLP), and are measured in units of mGy and mGy-cm, respectively. These indicators are not patient dose, but values generated from the CT scanner acquisition factors. The report includes radiation exposure data for exposures received during this examination. COMPARISON: CT HEAD WITHOUT CONTRAST on DOS: 11/15/24 FINDINGS: There is no evidence of acute intracranial hemorrhage, extra-axial collection, mass effect, midline s hift, herniation or hydrocephalus. The ventricles, sulci and cisterns are age appropriate. The dailey-white differentiation is intact. Patchy periventricular and subcortical white matter hypoattenuation is nonspecific but may be related to small vessel ischemic disease. The visualized paranasal sinuses and mastoid air cells are clear. The surrounding soft tissues and osseous structures are unremarkable. IMPRESSION: 1. No acute intracranial abnormality.
--- NOTE | 2025-04-15 01:40 | DVH ---
EXAM: CT CERVICAL WITHOUT CONTRAST HISTORY: head injury fall neck injury COMPARISON: None CTDIvol 52.41 mGy, DLP 1041.71 mGy*cm. TECHNIQUE: Multiple axial CT images of the spine were obtained using bone algorithm. Axial and coron al reformatting was done. Bone and soft tissue windows were reviewed. FINDINGS: Moderate dextroscoliosis of the cervical/thoracic spine as its apex about the T1 vertebral body. Ther e is reversal of normal cervical lordosis. No CT evidence of definite acute fracture, spinal dislocation, or significant appearing acute subluxa tion is seen. The visualized paraspinal soft tissues are grossly unremarkable. Advanced degenerative changes of the cervical spine include severe disc height loss at the C5-C6 and C6-C7 levels with adjacent endplate sclerosis and anterior osteophytosis. Anterolisthesis of C5 on C6 measures 0.3 cm. Atherosclerotic vascular calcifications within the bilateral carotid bulbs and aortic arch. IMPRESSION: 1. No definite CT evidence of acute fracture or dislocation of the bony cervical spine. 2. Advanced degenerative change, reversal of lordosis and dextroscoliosis of the cervical spine.
== END 2025-04-15 13:20 | disposition home or self-care (01) ==
LOC: ER 19:51 → EDBD 19:51 → ER 04-15 02:20
DX: S09.8XXA Other specified injuries of head, initial encounter (principal); F41.9 Anxiety disorder, unspecified; F03.90 Unspecified dementia, unspecified severity, without behavioral disturbance, psychotic disturbance, mood disturbance, and anxiety; W19.XXXA Unspecified fall, initial encounter; Y93.89 Activity, other specified; Y92.89 Other specified places as the place of occurrence of the external cause; Y99.8 Other external cause status
CPT/HCPCS: 70450; 72125

== ENCOUNTER 2025-04-22 18:46 | Inpatient (IN) | payer OTHER ==
[~2025-04-22] VITALS: Ht 147.3 cm; Wt 40.6 kg
[2025-04-22] MEDS: ACETAMINOPHEN 325 MG TAB PO ONE (19:00)
--- NOTE | 2025-04-22 19:44 | ED.PDOC ---
Musculoskeletal HPI Comments 79 y/o F is BIBA for left knee pain s/p mechanical fall and injury. Per EMS report, patient is a resident of [facility]. She was reported to have had a witnessed fall by staff and injuring her left knee without lost of consciousness or head injuries. Patient is unable to bear weight and walk on left leg, due to pain. Patient has a history of anemia, anxiety, breast cancer s/p mastectomy, dementia (A&Ox1 baseline), depression, and seizures. No history fo blood thinner use. Patient has no reported additional injuries, weakness, numbness, tingling, or further associated symptoms. Chief Complaint: Lower Extremity Time Seen by MD: 18:50 Primary Care Provider: n/a Reviewed Notes: Nurses Notes, Crime Lab Analyst Notes, Medications, Allergies Allergies: Coded Allergies: Pseudoephedrine (Verified Allergy, Unknown, 11/15/24) Home Meds Active Scripts Acetaminophen (Tylenol) 650 Mg Rc, 650 MG DC Q6HPRN PRN for 12 Days, #90 SUPP.RECT Prov:JORDANA OLIVEIRA MD 11/15/24 Ciprofloxacin Hcl (Cipro) 500 Mg Tab, 500 MG PO BID for 10 Days, #20 TAB Prov:LORNA MORRISSEY MD 03/24/23 Information Source: Patient, Emergency Med Personnel Mode of Arrival: EMS Location: Left Extremity Location: Knee Timing: Hours Prehospital treatment: 12 Lead EKG, Accucheck, Paper Carrier Severity: Moderate Review of Systems: REVIEW OF SYSTEMS: No fever, no chills, or fatigue HEENT: No sore throat, no earache, no congestion, no neck pain. Cardiac: No chest pain. No palpitations. Lungs: No shortness of breath, no cough. GI: No nausea, no vomiting, no diarrhea, no constipation, no abdominal pain : No dysuria, frequency, or urgency. No hematuria. Musculoskeletal: Left knee pain, no joint swelling, no extremity edema. Skin: No rash, no itching. Neuro: No headache, no dizziness, no weakness Vital Signs Vital Signs Date Time Temp Pulse Resp B/P (MAP) Pulse Ox O2 Delivery O2 Flow Rate FiO2 04/22/25 21:11 98.7 96 16 116/68 (84) 94 98.7 Physical Exam General: Awake, alert and oriented. No acute distress. Skin: Skin in warm, dry and intact. Appropriate color for ethnicity. HEENT: The head is normocephalic and atraumatic. Conjunctivae are clear without exudates or hemorrhage. Sclera is non-icteric. EOM are intact. No signs of nystagmus. Eyelids are normal in appearance without swelling or lesions. Oral mucosa is pink and moist Neck: The neck is supple with normal range of motion. No JVD. Cardiac: Heart rate and rhythm are normal. No murmurs, gallops, or rubs are auscultated. Respiratory: No signs of respiratory distress. Lung sounds are clear in all lo bes bilaterally without rales, rhonchi, or wheezes. Abdominal: Abdomen is soft, non-tender without distention, guarding or rigidity. Bowel sounds are present and normoactive in all four quadrants. Extremities: Left knee swelling, minimal tenderness, DP pulse intact. Otherwise, remaining upper and lower extremities are atraumatic in appearance without deformity or edema. Neurological: The patient is awake, alert and oriented to person, place, and time with normal speech. Speech is clear. There is no facial asymmetry. Psychiatric: Appropriate mood and affect. Good judgement and insight. 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 Was a procedure done?: No Differential Diagnosis EXT Differential Diagnosis: Fracture, Sprain, Dislocation, Contusion, Strain X-Ray, Labs, Meds, VS Vital Signs Date Time Temp Pulse Resp B/P (MAP) Pulse Ox O2 Delivery O2 Flow Rate FiO2 04/22/25 21:11 98.7 96 16 116/68 (84) 94 98.7 04/22/25 18:48 98.3 73 18 141/64 (89) 97 98.3 [facility] [id number] [place] [id number] Ph: [phone] DIAGNOSTIC IMAGING Diagnostic Imaging Report : [id number] Signed PATIENT: ALBIN WASHINGTON ACCT: [id number] UNIT: [id number] : 1945 LOC: ER ROOM / BED: / AGE / SEX: 79 / F ADM STATUS: REG ER SERVICE 55 ORDERING PHYSICIAN: NINA PIMENTEL MD PROCEDURE(s): LKNE4 - L KNEE 4V XRAY REASON: fall pain ORDER NUMBER(s): [id number], ACCESSION NUMBER(s): [id number] CLINICAL INDICATION: fall pain TECHNIQUE: XY L KNEE 4V XRAY Comparison: None FINDINGS/IMPRESSION: : Mildly displaced partially comminuted distal metadiaphyseal femoral fracture. The visualized joint spaces are well preserved. Soft tissues are unremarkable. ATED BY: PAPA LEON MD DICTATED DATE/TIME: 04/22/252111 SIGNED BY: PAPA LEON MD SIGNED DATE/TIME: 04/22/252111 CC: Time of 1ST Reevaluation: 19:20 Reevaluation 1ST: Unchanged Patient Education/Counseling: Other (Patient has dementia) Family Education/Counseling: No Family Present Departure 1 Departure Time of Disposition: 21:34 Impression: Primary Impression: Closed comminuted intra-articular fracture of distal femur Disposition: ADMITTED INPATIENT Condition: Stable Comments Patient admitted to hospitalist service for further treatment, evaluation and monitoring. Extensive evaluation was performed in attempt to identify or rule out: (See differential diagnosis section) The following tests were ordered, and results were reviewed by me: (See melissa gnostic results section) The following test were independently interpreted by me: N/A I reviewed and agreed with the following test results read by other providers: X-ray left knee I reviewed the following notes from the pt's past medical encounters: November 15, 2024 and April 14, 2025 encounters for fracture of right humeral head and fall, respectively. Additional information was gathered from interviewing the following independent historians: EMS Discussion of management or test interpretation with external physician/other qualified health critical care educator: N/A Critical Care Note Critical Care Time?: No Stability Stability form required: No Heart Score Heart Score: Heart Score Response (Comments) Value History N/A 0 EKG N/A 0 Age N/A 0 Risk Factors N/A 0 Troponin N/A 0 Total 0 I personally scribed for NINA PIMENTEL MD ([email or web address]) on 04/22/25 at 19:44. Electronically submitted by Levar Altman ([email or web address]). I personally scribed for NINA PIMENTEL MD ([email or web address]) on 04/22/25 at 23:36. Electronically submitted by Levar Altman ([email or web address]). NINA PIMENTEL MD Apr 22, 2025 19:44
--- NOTE | 2025-04-22 21:14 | DVH ---
CLINICAL INDICATION: fall pain TECHNIQUE: XY L KNEE 4V XRAY Comparison: None FINDINGS/IMPRESSION: : Mildly displaced partially comminuted distal metadiaphyseal femoral fracture. The visualized joint spaces are well preserved. Soft tissues are unremarkable.
[2025-04-22] MEDS ORDERED: ACETAMINOPHEN 325 MG TAB PO PRN (22:00)
[2025-04-22] MEDS ORDERED: ONDANSETRON HCL 4 MG/2 ML VIAL IV PRN (22:00)
[2025-04-22 22:48] LABS: Basophils # (auto) 0 10 ^3/uL (0-0.2); Basophils % (auto) 0.2 % (0.0-2.0); Eosinophils # (auto) 0 10 ^3/uL (0-0.8); Eosinophils % (auto) 0.2 % (0.0-7.0); Hematocrit 39.6 % (36.0-46.0); Hemoglobin 13.5 g/dL (12.2-16.2); Lymphocytes # (auto) 0.7 10 ^3/uL (0.4-5.4); Lymphocytes % (auto) 5.1 % (10.0-50.0); Mean Corpuscular Hemoglobin 30.6 pg (28.0-32.0); Mean Corpuscular Hgb Conc. 34.1 g/dL (32.0-36.0); Mean Corpuscular Volume 89.7 fL (80.0-100.0); Monocytes # (auto) 0.8 10 ^3/uL (0-1.3); Monocytes % (auto) 6.2 % (0.0-12.0); Neutrophils # (auto) 12.1 10 ^3/uL (1.6-8.6); Neutrophils % (auto) 88.3 % (37.0-80.0); Platelet Count (auto) 331 10^3/uL (140-450); Red Blood Cells 4.41 10^6/uL (4.0-5.20); White Blood Cell 13.8 10^3/uL (4.4-10.8)
[2025-04-22 22:52] LABS: Potassium 3.8 mmol/L (3.5-5.1); Sodium 140 mmol/L (136-145)
[2025-04-22 22:53] LABS: Anion Gap 10 (5-15); Carbon Dioxide 22 mmol/L (20-31)
[2025-04-22 22:58] LABS: BUN/Creatinine Ratio 19.2 (10.0-20.0); Blood Urea Nitrogen 14 mg/dL (9-23)
[2025-04-22 22:59] LABS: INR 1.06 (0.9-1.15); Partial Thromboplastin Time 23.4 SEC (24.5-34.5); Prothrombin Time 11.2 sec (9.3-11.8)
[2025-04-22 23:00] LABS: Chloride 108 mmol/L (98-107); Glucose 149 mg/dL (74-106)
[2025-04-22 23:14] VITALS: RESP 18; O2SAT 96
[2025-04-23 00:07] VITALS: BP 140/79; PULSE 70; PULSE 77; RESP 17; RESP 18; TEMP 99.2; O2SAT 96; O2SAT 98
--- NOTE | 2025-04-23 04:33 | DVHHP2 ---
History of Present Illness Reason for Visit: Knee pain History of Present Illness 79-year-old female presents for evaluation of left knee pain. Patient had a witnessed fall at the assisted living facility where she resides. Patient was noted left knee swelling and tenderness. No reports of head trauma or loss of consciousness. Past Medical History Depression, cancer, dementia Past Surgical History Mastectomy Family History Noncontributory Smoke: No ALCOHOL: none Drugs: None Lives: [facility] Review of Systems Review of Systems Review of systems are limited due to patient's dementia. Allergies: Coded Allergies: Pseudoephedrine (Verified Allergy, Unknown, 11/15/24) Medications Current Medications Medications Dose Ordered Sig/Josafat Route Start Time Stop Time Status Last Admin Dose Admin Acetaminophen/ Hydrocodone Bitart 1 tab Q4HP PRN PO 04/22/25 22:00 Ondansetron HCl 4 mg Q4HP PRN IV 04/22/25 22:00 Acetaminophen 650 mg Q6HP PRN PO 04/22/25 22:00 Morphine Sulfate 2 mg Q6HPRN PRN IV 04/22/25 22:00 Exam Vital Signs Vital Signs Date Time Temp Pulse Resp B/P (MAP) Pulse Ox O2 Delivery O2 Flow Rate FiO2 04/23/25 00:07 98 Room Air* 0 21 04/22/25 23:14 18 04/22/25 23:01 73 04/22/25 21:11 98.7 116/68 (84) 98.7 Exam Gen: 79-year-old female in mild distress Skin: Warm, dry, normal color and texture, no rash. HEENT: Normocephalic atraumatic, mucous membranes moist and pink. Neck: Cervical and supraclavicular nodes normal without enlargement, trachea is midline, thyroid gland is normal without masses. Pulmonary: Clear to auscultation and percussion bilaterally. Cardiac: Regular rate and rhythm. No murmur Abdomen: Soft, nontender, nondistended, bowel sounds present all 4 quadrants, no guarding, no rigidity, no organomegaly. Extremities: No cyanosis, clubbing, left knee swelling with tenderness Neuro: Cranial nerves II through XII grossly intact, normal affect and speech, no focal motor deficits. Labs/Xrays ORDERING PHYSICIAN: NINA PIMENTEL MD PROCEDURE(s): LKNE4 - L KNEE 4V XRAY REASON: fall pain ORDER NUMBER(s): [id number], ACCESSION NUMBER(s): [id number] CLINICAL INDICATION: fall pain TECHNIQUE: XY L KNEE 4V XRAY Comparison: None FINDINGS/IMPRESSION: : Mildly displaced partially comminuted distal metadiaphyseal femoral fracture. The visualized joint spaces are well preserved. Soft tissues are unremarkable. Labs Test 04/22/25 22:20 Range/Units White Blood Count 13.8 H 4.4-10.8 10^3/uL Red Blood Count 4.41 4.0-5.20 10^6/uL Hemoglobin 13.5 12.2-16.2 g/dL Hematocrit 39.6 36.0-46.0 % Mean Corpuscular Volume 89.7 80.0-100.0 fL Mean Corpuscular Hemoglobin 30.6 28.0-32.0 pg Mean Corpuscular Hemoglobin Concent 34.1 32.0-36.0 g/dL Red Cell Distribution Width 13.0 11.8-14.3 % Platelet Count 331 140-450 10^3/uL Mean Platelet Volume 6.9 6.9-10.8 fL Neutrophils (%) (Auto) 88.3 H 37.0-80.0 % Lymphocytes (%) (Auto) 5.1 L 10.0-50.0 % Monocytes (%) (Auto) 6.2 0.0-12.0 % Eosinophils (%) (Auto) 0.2 0.0-7.0 % Basophils (%) (Auto) 0.2 0.0-2.0 % Neutrophils # (Auto) 12.1 H 1.6-8.6 10 ^3/uL Lymphocytes # (Auto) 0.7 0.4-5.4 10 ^3/uL Monocytes # (Auto) 0.8 0-1.3 10 ^3/uL Eosinophils # (Auto) 0 0-0.8 10 ^3/uL Basophils # (Auto) 0 0-0.2 10 ^3/uL Nucleated Red Blood Cells 0.0 % Prothrombin Time 11.2 9.3-11.8 sec Prothrombin Time INR 1.06 0.9-1.15 Activated Partial Thromboplast Time 23.4 L 24.5-34.5 SEC Sodium Level 140 136-145 mmol/L Potassium Level 3.8 3.5-5.1 mmol/L Chloride Level 108 H 98-107 mmol/L Carbon Dioxide Level 22 20-31 mmol/L Anion Gap 10 5-15 Blood Urea Nitrogen 14 9-23 mg/dL Creatinine 0.73 0.550-1.02 mg/dL Glomerular Filtration Rate Calc 84 >90 mL/min BUN/Creatinine Ratio 19.2 10.0-20.0 Serum Glucose 149 H 74-106 mg/dL Calcium Level 10.0 8.7-10.4 mg/dL Assessment/Plan Assessment/Plan Assessment Left distal femoral fracture Dementia Plan Admit the patient to [facility] to the hospitalist Orthopedic consultation Pain management Continue treatment per orders. Plan discussed with: Patient My Orders Orders - AURY HUSSEIN Procedure Category Date Status Time Chest Xray 1 View XY 04/22/25 Taken 21:58 *Consult Dr. Mayorga CONS 04/22/25 Transmitted Norah 21:58 Admit ADMIT 04/22/25 Transmitted 21:58 Hydrocodone-Acet PHA 04/22/25 In Process 5/325mg Tab ([place] 22:00 Ondansetron Hcl PHA 04/22/25 In Process (Zofran) 22:00 Cardiac DIET 04/23/25 Transmitted Diet-2gna,Lofat,Lochol Breakfast Condition: Stable ANAHI 04/22/25 In Process 21:58 Acetaminophen Tablet PHA 04/22/25 In Process (Tylenol Tablet) 22:00 Maintain Bed Rest ANAHI 04/22/25 In Process 21:58 Morphine Sulfate PHA 04/22/25 In Process Injection 22:00 Date of Service: Apr 22, 2025 Billing Provider: AURY HUSSEIN Common Visit Codes: [id number] INP/OBS CARE (MOD) AURY HUSSEIN Apr 23, 2025 04:33
[2025-04-23] MEDS ORDERED: CHOL20007 PO (06:57)
[2025-04-23] MEDS ORDERED: TEMA30CA PO (06:57)
[2025-04-23] MEDS ORDERED: RISP1TAB63 PO (06:57)
[2025-04-23] MEDS ORDERED: FER300LQ GT (06:57)
[2025-04-23] MEDS ORDERED: LORA-1121 PO (06:57)
--- NOTE | 2025-04-23 11:32 | DVH ---
LEFT CT LOWER EXTREMITY WITHOUT CONTRAST: HISTORY: Left femur fracture COMPARISON: None CONTRAST: Study was performed without contrast. TECHNIQUE: Spiral CT performed of the LEFT lower extremity without IV contrast. Dose reduction techni que was used on this scan by utilizing automated exposure control, adjustment of the mA and/or kV acc ording to the patient size. DICOM format image data available to non-affiliated external healthcare f acilities or entities on a secure, media free, reciprocally searchable basis with patient authorizati on for at least a 12 month period after the study CHOOSE WHERE 3Ds WERE PERFORMED FROM THE [place] TAB ON THE LEFT. IF NOT PERFORMED, DELETE THIS LINE. FINDINGS: The bones are severely demineralized. There is a comminuted fracture of the distal femur extending fr om the metadiaphyseal region into the femoral condyle. There is no extension into the inferior medial or lateral condyles.. There is overriding of fracture fragments in severe angulation of the metadiap hyseal- control junction. There is a moderate sized lipohemarthrosis. There is surrounding soft tissu e swelling within the popliteal fossa and posterior thigh. The tibia and proximal fibular unremarkabl e. There is hyperattenuating within the right popiteal vein. Atherosclerotic calcifications are noted wi thin the popliteal artery. IMPRESSION: 1. Comminuted angulated fracture of the distal femur with involvement of the metadiaphysis and proxim al aspect of the condyles with associated moderate sized lipohemarthrosis. 2. No additional fractures are identified 3. High density within the right popiteal vein, recommend ultrasound to assess for DVT.
--- NOTE | 2025-04-23 14:55 | DVH ---
CHEST RADIOGRAPH Indication: preop Technique: Single frontal view of the chest was obtained Comparison: XY CHEST PORTABLE on DOS: 11/15/24, XY CHEST PORTABLE on DOS: 04/24/23, XY CHEST PORTABLE o n DOS: 03/24/23 FINDINGS: Lines and Tubes: None Lungs: Increased density over the upper mediastinum. Correlate for artifact. Present on 11/15/2024 no t appear significantly changed. Decreased inspiratory effort when compared to November 2024 Pleura: No effusion. No pneumothorax. Cardiomediastinal contours: Unremarkable Bones: No acute osseous abnormality. IMPRESSION: 1. . Decreased inspiratory effort. Otherwise no significant change from November 15, 2024. HS:Y
--- NOTE | 2025-04-23 15:31 | DVHINCON2 ---
Date of service: Apr 23, 2025 Reason for Consultation Left distal femur fracture History of Present Illness Mrs. Reynoso is a 79-year-old female who was brought to the hospital due to c oncerns of a left distal femur fracture. 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 Patient's caregiver reports that the patient had a fall at her assisted living facility and has been having swelling and pain to her knee since the fall. Patient's caregiver reports that the patient was walking well before this most recent incident. Past Medical History Depression, dementia, and cancer Past Surgical History Mastectomy Family History Noncontributory Social History Denies smoking, EtOH, or illicit substance abuse Allergies: Coded Allergies: Pseudoephedrine (Verified Allergy, Unknown, 11/15/24) Home Meds Active Scripts Acetaminophen (Tylenol) 650 Mg Rc, 650 MG TN Q6HPRN PRN for 12 Days, #90 SUPP.RECT Prov:JORDANA OLIVEIRA MD 11/15/24 Reported Medications Cholecalciferol (VITAMIN D3) 2,000 Unit Tab, 1 TAB PO DAILY, #30 TAB 5 Refills 04/23/25 Ferrous Sulfate (Ferrous Sulfate) 300 Mg/5 Ml Sr, 325 MG GT, SYP 04/23/25 Lorazepam (ATIVAN TABLET) 0.5 Mg Tb, 1 TAB PO BID, #90 TAB 04/23/25 Temazepam (Temazepam) 30 Mg Cap, 1 CAP PO QPM, #30 CAP 1 Refill 04/23/25 Risperidone (Risperidone) 1 Mg Tab, 1 TAB PO QPM, #30 TAB 1 Refill 04/23/25 Current Medications Current Medications Medications (Trade) Dose Ordered Sig/Josafat Route PRN Reason Start Time Stop Time Status Last Admin Acetaminophen/ Hydrocodone Bitart ([place] 5/325MG Tab) 1 tab Q4HP PRN PO MODERATE PAIN (4-6 PAIN SCALE) 04/22/25 22:00 Ondansetron HCl (Zofran) 4 mg Q4HP PRN IV NAUSEA / VOMITING 04/22/25 22:00 Acetaminophen (Tylenol Tablet) 650 mg Q6HP PRN PO PAIN SCALE 1-3 OR TEMP>100.4 04/22/25 22:00 Morphine Sulfate 2 mg Q6HPRN PRN IV SEVERE PAIN (7-10 PAIN SCALE) 04/22/25 22:00 Review of Systems 10 point review of systems negative except as per HPI Vital Signs Vital Signs Date Time Temp Pulse Resp B/P (MAP) Pulse Ox O2 Delivery O2 Flow Rate FiO2 04/23/25 08:00 Room Air* 0 21 04/23/25 00:07 99.2 77 18 140/79 (99) 96 99.2 Physical Exam General appearance: Alert to name HEENT: Normal ENT inspection, pharynx normal, TMs normal Neck: Full range of motion, nontender, normal inspection Respiratory: Chest nontender, without accessory muscle use, no respiratory distress Cardiovascular: No edema, no JVD, normal peripheral pulses Gastrointestinal: Soft, nontender, no organomegaly. Musculoskeletal: Left knee range of motion grossly limited with pain on slight movement, no calf tenderness, normal capillary refill, no pedal edema, neurovascularly intact. Skin: Dry, normal color, warm Lymphatic: No adenopathy Labs/Diagnostic Data Labs Test 04/22/25 22:20 Range/Units White Blood Count 13.8 H 4.4-10.8 10^3/uL Red Blood Count 4.41 4.0-5.20 10^6/uL Hemoglobin 13.5 12.2-16.2 g/dL Hematocrit 39.6 36.0-46.0 % Mean Corpuscular Volume 89.7 80.0-100.0 fL Mean Corpuscular Hemoglobin 30.6 28.0-32.0 pg Mean Corpuscular Hemoglobin Concent 34.1 32.0-36.0 g/dL Red Cell Distribution Width 13.0 11.8-14.3 % Platelet Count 331 140-450 10^3/uL Mean Platelet Volume 6.9 6.9-10.8 fL Neutrophils (%) (Auto) 88.3 H 37.0-80.0 % Lymphocytes (%) (Auto) 5.1 L 10.0-50.0 % Monocytes (%) (Auto) 6.2 0.0-12.0 % Eosinophils (%) (Auto) 0.2 0.0-7.0 % Basophils (%) (Auto) 0.2 0.0-2.0 % Neutrophils # (Auto) 12.1 H 1.6-8.6 10 ^3/uL Lymphocytes # (Auto) 0.7 0.4-5.4 10 ^3/uL Monocytes # (Auto) 0.8 0-1.3 10 ^3/uL Eosinophils # (Auto) 0 0-0.8 10 ^3/uL Basophils # (Auto) 0 0-0.2 10 ^3/uL Nucleated Red Blood Cells 0.0 % Prothrombin Time 11.2 9.3-11.8 sec Prothrombin Time INR 1.06 0.9-1.15 Activated Partial Thromboplast Time 23.4 L 24.5-34.5 SEC Sodium Level 140 136-145 mmol/L Potassium Level 3.8 3.5-5.1 mmol/L Chloride Level 108 H 98-107 mmol/L Carbon Dioxide Level 22 20-31 mmol/L Anion Gap 10 5-15 Blood Urea Nitrogen 14 9-23 mg/dL Creatinine 0.73 0.550-1.02 mg/dL Glomerular Filtration Rate Calc 84 >90 mL/min BUN/Creatinine Ratio 19.2 10.0-20.0 Serum Glucose 149 H 74-106 mg/dL Calcium Level 10.0 8.7-10.4 mg/dL left femur CT reviewed and demonstrated: Comminuted angulated fracture of the d istal femur with involvement of the metadiaphysis and proximal aspect of the condyles with associated moderate sized lipohemarthrosis. No additional fractures are identified Left knee x-ray reviewed and demonstrated: Mildly displaced partially comminuted distal metadiaphyseal femoral fracture. The visualized joint spaces are well preserved. Soft tissues are unremarkable. Assessment Comminuted distal femur fracture Plan/Recommendation I had a lengthy discussion with the patient and her caregiver and after discussing her case and reviewing her imaging studies with Dr. Hayden we have recommended that the patient be transferred to higher level of care as the patient has a very distal femur fracture in an osteoporotic female with very poor bone quality making this a complex trauma and also visualized a possible cyst on imaging suggestive of possible bone loss or malignancy and given that we do not have any fellowship trained or experienced orthopedic trauma specialist surgeons available to operate on her fracture. Please contact ortho if the patient and her caregiver have any further questions or concerns. Thank you for allowing us to participate in the care of your patient. Plan discussed with: Patient GRANT RAMSAY Tej NEGRON Apr 23, 2025 15:31
--- NOTE | 2025-04-23 15:59 | DVHDS2 ---
Discharge Summary Date of Admission Apr 22, 2025 at 21:58 Date of Discharge: Apr 28, 2025 Admitting Diagnosis Left distal femoral fracture Labs/Diagnostic Data: Laboratory Results Test 04/22/25 22:20 White Blood Count 13.8 10^3/uL (4.4-10.8) Red Blood Count 4.41 10^6/uL (4.0-5.20) Hemoglobin 13.5 g/dL (12.2-16.2) Hematocrit 39.6 % (36.0-46.0) Mean Corpuscular Volume 89.7 fL (80.0-100.0) Mean Corpuscular Hemoglobin 30.6 pg (28.0-32.0) Mean Corpuscular Hemoglobin Concent 34.1 g/dL (32.0-36.0) Red Cell Distribution Width 13.0 % (11.8-14.3) Platelet Count 331 10^3/uL (140-450) Mean Platelet Volume 6.9 fL (6.9-10.8) Neutrophils (%) (Auto) 88.3 % (37.0-80.0) Lymphocytes (%) (Auto) 5.1 % (10.0-50.0) Monocytes (%) (Auto) 6.2 % (0.0-12.0) Eosinophils (%) (Auto) 0.2 % (0.0-7.0) Basophils (%) (Auto) 0.2 % (0.0-2.0) Neutrophils # (Auto) 12.1 10 ^3/uL (1.6-8.6) Lymphocytes # (Auto) 0.7 10 ^3/uL (0.4-5.4) Monocytes # (Auto) 0.8 10 ^3/uL (0-1.3) Eosinophils # (Auto) 0 10 ^3/uL (0-0.8) Basophils # (Auto) 0 10 ^3/uL (0-0.2) Nucleated Red Blood Cells 0.0 % Prothrombin Time 11.2 sec (9.3-11.8) Prothrombin Time INR 1.06 (0.9-1.15) Activated Partial Thromboplast Time 23.4 SEC (24.5-34.5) Sodium Level 140 mmol/L (136-145) Potassium Level 3.8 mmol/L (3.5-5.1) Chloride Level 108 mmol/L (98-107) Carbon Dioxide Level 22 mmol/L (20-31) Anion Gap 10 (5-15) Blood Urea Nitrogen 14 mg/dL (9-23) Creatinine 0.73 mg/dL (0.550-1.02) Glomerular Filtration Rate Calc 84 mL/min (>90) BUN/Creatinine Ratio 19.2 (10.0-20.0) Serum Glucose 149 mg/dL (74-106) Calcium Level 10.0 mg/dL (8.7-10.4) Other Laboratory Tests 04/22/25 22:20 Brief Hx & Hospital Course: Mrs. Reynoso is a 79-year-old female who was brought to the hospital due to concerns of a left distal femur fracture. 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 Patient's caregiver reports that the patient had a fall at her assisted living facility and has been having swelling and pain to her knee since the fall. Patient's caregiver reports that the patient was walking well before this most recent incident. Patient will be transferred to higher level of care for Ortho Trauma. Condition at Discharge: Poor Final Diagnosis/Problems List Left distal femoral fracture Pscyh Disorder UTI??? Discharge Disposition: Acute Care Facility Discharge Statement: "Patient was advised to return to the ER or call 911 if any headaches, dizziness, shortness of breath, chest pain, abdominal pain, bleeding, fevers, or worsening of medical condition. Patient was counseled about treatment plan, medications, possible side effects, patientverbalized understanding. All questions were answered to the best of my ability. This discharge took greater then 30 minutes in planning, reviewing documentation, counseling the patient, and discussing with other team members." ASSESSMENT ASSESSMENT Assessment Date of Service: Apr 23, 2025 Billing Provider: TARYN PEREZ MD Common Visit Codes: [id number] DISCH DAY >30min TARYN PEREZ MD Apr 23, 2025 15:59
[2025-04-23] MEDS: cefTRIAXone 1GM/50ML D5W 50 ML IV ONE (18:12)
[2025-04-23] MEDS: MORPHINE SULFATE INJ 2 MG/ml SYRG IV PRN (18:13)
[2025-04-23 21:00] VITALS: BP 110/65; PULSE 93; RESP 17; TEMP 98.7; O2SAT 94
[2025-04-24] VITALS (8 sets, daily range): BP systolic 101–117; BP diastolic 64–75; PULSE 68–88; RESP 16–18; TEMP 98.6–99.6; O2SAT 92–99
[2025-04-24 04:30] LABS: Urine Bacteria None Seen /hpf (None Seen)
[2025-04-24 04:47] LABS: Urine Blood Negative /uL (Negative); Urine Clarity Clear (Clear); Urine Color Yellow (Yellow); Urine Mucus FEW (None Seen); Urine Protein, UAD Negative (Negative); Urine Specific Gravity 1.025 (1.001-1.035); Urine Squamous Epithelial Cell FEW /hpf (<5); Urine Urobilinogen Normal (Negative); Urine WBC 13 /HPF (0-5); Urine pH 5.5 (5.0-9.0)
[2025-04-24] MEDS: cefTRIAXone 1GM/50ML D5W 50 ML IV SCH (10:09)
--- NOTE | 2025-04-24 13:34 | DVHPN2 ---
Subjective Awaiting transfer to [facility]. Changes from previous H/P or p: No Changes Objective Vitals Vital Signs Date Time Temp Pulse Resp B/P (MAP) Pulse Ox O2 Delivery O2 Flow Rate FiO2 04/24/25 09:26 99.6 85 16 117/67 (84) 95 99.6 04/24/25 08:00 Room Air* 0 21 Intake/Output Intake and Output 04/24/25 07:00 Intake Total 390 ml Balance 390 ml Intake Oral 340 ml IV Total 50 ml # Voids 5 # Bowel Movements 3 Exam Deferred as patient was sleeping Medications Current Medications Medications Dose Ordered Sig/Josafat Route Start Time Stop Time Status Last Admin Dose Admin Acetaminophen/ Hydrocodone Bitart 1 tab Q4HP PRN PO 04/22/25 22:00 Ondansetron HCl 4 mg Q4HP PRN IV 04/22/25 22:00 Acetaminophen 650 mg Q6HP PRN PO 04/22/25 22:00 Morphine Sulfate 2 mg Q6HPRN PRN IV 04/22/25 22:00 04/24/25 04:00 2 MG Ceftriaxone Sodium 50 ml @ 100 mls/hr DAILY@09 IV 04/24/25 09:00 04/24/25 10:09 100 MLS/HR Laboratory Results Laboratory Tests 04/22/25 22:20 Urinalysis Test 04/24/25 04:30 Urine Color Yellow (Yellow) Urine Clarity Clear (Clear) Urine pH 5.5 (5.0-9.0) Urine Specific [place] 1.025 (1.001-1.035) Urine Protein Negative (Negative) Urine Ketones 1+ (Negative) H Urine Blood Negative /uL (Negative) Urine Nitrite Negative (Negative) Urine Bilirubin Negative (Negative) Urine Urobilinogen Normal mg/dL (Negative) Urine Leukocyte Esterase 1+ /uL (Negative) Urine RBC 2 /hpf (0 - 4) Urine Microscopic WBC 13 /HPF (0-5) H Urine Squamous Epithelial Cells Few /hpf (<5) Urine Bacteria None seen /hpf (None Seen) Urine Mucus Few (None Seen) Urine Glucose Normal mg/dL (Normal) Assessment/Plan Assessment/Plan Left distal femoral fracture- Transfer to [facility] Pscyh Disorder UTI???- Rocephin IV Plan discussed with: Other (rn) My Orders Orders - TARYN PEREZ MD Procedure Category Date Status Time Insert West Catheter ANAHI 6/19/25 In Process 15:25 Ceftriaxone 1gm/50ml PHA 04/24/25 In Process D5w (Rocephin) 09:00 * Academic Assistant CONS 04/23/25 Transmitted Consult Discharge DISCHARGE 04/23/25 Transmitted 15:59 * Academic Assistant CONS 04/23/25 Transmitted Consult Apply Z-Guard ANAHI 04/23/25 In Process 12:16 Date of Service: Apr 24, 2025 Billing Provider: TARYN PEREZ MD Common Visit Codes: [id number] INP/OBS CARE(HIGH) TARYN PEREZ MD Apr 24, 2025 13:34
[2025-04-24] MEDS: HYDROcodone-ACET 5/325MG TAB PO PRN (15:18)
[2025-04-24] MEDS: risperiDONE 1 MG TAB PO SCH (21:44)
[2025-04-24] MEDS: TEMAZEPAM 15 MG CAP PO PRN (21:44)
[2025-04-25] VITALS (9 sets, daily range): BP systolic 91–117; BP diastolic 51–63; PULSE 72–82; RESP 16–20; TEMP 97.5–99; O2SAT 92–96
--- NOTE | 2025-04-25 12:22 | DVHPN2 ---
Subjective pending HLOC transfer Changes from previous H/P or p: No Changes Objective Vitals Vital Signs Date Time Temp Pulse Resp B/P (MAP) Pulse Ox O2 Delivery O2 Flow Rate FiO2 04/25/25 08:00 75 17 95 Room Air* 0 21 04/25/25 05:00 97.9 91/51 (64) 97.9 Intake/Output Intake and Output 04/25/25 07:00 Intake Total 675 ml Balance 675 ml Intake Oral 625 ml IV Total 50 ml # Voids 6 # Bowel Movements 1 Medications Current Medications Medications Dose Ordered Sig/Josafat Route Start Time Stop Time Status Last Admin Dose Admin Acetaminophen/ Hydrocodone Bitart 1 tab Q4HP PRN PO 04/22/25 22:00 04/25/25 12:19 1 TAB Ondansetron HCl 4 mg Q4HP PRN IV 04/22/25 22:00 Acetaminophen 650 mg Q6HP PRN PO 04/22/25 22:00 Morphine Sulfate 2 mg Q6HPRN PRN IV 04/22/25 22:00 04/24/25 04:00 2 MG Ceftriaxone Sodium 50 ml @ 100 mls/hr DAILY@09 IV 04/24/25 09:00 04/25/25 09:00 100 MLS/HR Risperidone 1.5 mg HS PO 04/24/25 22:00 04/24/25 21:44 1.5 MG Temazepam 30 mg HSPRN PRN PO 04/24/25 19:15 04/24/25 21:44 30 MG Laboratory Results Laboratory Tests 04/22/25 22:20 Urinalysis Test 04/24/25 04:30 Urine Color Yellow (Yellow) Urine Clarity Clear (Clear) Urine pH 5.5 (5.0-9.0) Urine Specific [place] 1.025 (1.001-1.035) Urine Protein Negative (Negative) Urine Ketones 1+ (Negative) H Urine Blood Negative /uL (Negative) Urine Nitrite Negative (Negative) Urine Bilirubin Negative (Negative) Urine Urobilinogen Normal mg/dL (Negative) Urine Leukocyte Esterase 1+ /uL (Negative) Urine RBC 2 /hpf (0 - 4) Urine Microscopic WBC 13 /HPF (0-5) H Urine Squamous Epithelial Cells Few /hpf (<5) Urine Bacteria None seen /hpf (None Seen) Urine Mucus Few (None Seen) Urine Glucose Normal mg/dL (Normal) Assessment/Plan Assessment/Plan Left distal femoral fracture- Transfer to [facility] Pscyh Disorder UTI???- Rocephin IV Plan discussed with: Other Date of Service: Apr 25, 2025 Billing Provider: CARLOS PAULA MD Common Visit Codes: [id number] INP/OBS CARE(HIGH) CARLOS PAULA MD Apr 25, 2025 12:22
[2025-04-25] MEDS: SODIUM CHLORIDE 0.9% 250 ML IV ONE (12:30)
[2025-04-26] VITALS (8 sets, daily range): BP systolic 99–149; BP diastolic 53–78; PULSE 73–89; RESP 16–18; TEMP 97.7–99.2; O2SAT 93–95
[2025-04-26 06:43] LABS: Basophils # (auto) 0 10 ^3/uL (0-0.2); Basophils % (auto) 0.5 % (0.0-2.0); Eosinophils # (auto) 0.1 10 ^3/uL (0-0.8); Eosinophils % (auto) 1.5 % (0.0-7.0); Hematocrit 30.7 % (36.0-46.0); Hemoglobin 10.6 g/dL (12.2-16.2); Lymphocytes % (auto) 13.8 % (10.0-50.0); Mean Corpuscular Hemoglobin 30.7 pg (28.0-32.0); Mean Corpuscular Hgb Conc. 34.5 g/dL (32.0-36.0); Monocytes # (auto) 0.8 10 ^3/uL (0-1.3); Monocytes % (auto) 10.7 % (0.0-12.0); Neutrophils # (auto) 5.4 10 ^3/uL (1.6-8.6); Neutrophils % (auto) 73.5 % (37.0-80.0); Platelet Count (auto) 242 10^3/uL (140-450); Red Blood Cells 3.45 10^6/uL (4.0-5.20); Red Cell Distribution Width 13.3 % (11.8-14.3); White Blood Cell 7.3 10^3/uL (4.4-10.8)
[2025-04-26 06:46] LABS: Potassium 3.7 mmol/L (3.5-5.1); Sodium 140 mmol/L (136-145)
[2025-04-26 06:47] LABS: Anion Gap 10 (5-15); Calcium 8.5 mg/dL (8.7-10.4); Carbon Dioxide 21 mmol/L (20-31); Chloride 109 mmol/L (98-107)
[2025-04-26 06:52] LABS: BUN/Creatinine Ratio 33.3 (10.0-20.0); Blood Urea Nitrogen 15 mg/dL (9-23); Glucose 99 mg/dL (74-106)
[2025-04-26 06:54] LABS: Phosphorus 2.9 mg/dL (2.4-5.1)
--- NOTE | 2025-04-26 15:49 | DVHPN2 ---
Subjective pending HLOC transfer, [facility] pending bed Changes from previous H/P or p: No Changes Objective Vitals Vital Signs Date Time Temp Pulse Resp B/P (MAP) Pulse Ox O2 Delivery O2 Flow Rate FiO2 04/26/25 09:00 98.1 75 16 119/53 (75) 95 98.1 04/26/25 08:00 Room Air* 0 21 Intake/Output Intake and Output 04/26/25 07:00 Intake Total 1750 ml Balance 1750 ml Intake Oral 1450 ml IV Total 300 ml # Voids 8 Medications Current Medications Medications Dose Ordered Sig/Josafat Route Start Time Stop Time Status Last Admin Dose Admin Acetaminophen/ Hydrocodone Bitart 1 tab Q4HP PRN PO 04/22/25 22:00 04/26/25 03:14 1 TAB Ondansetron HCl 4 mg Q4HP PRN IV 04/22/25 22:00 Acetaminophen 650 mg Q6HP PRN PO 04/22/25 22:00 Morphine Sulfate 2 mg Q6HPRN PRN IV 04/22/25 22:00 04/24/25 04:00 2 MG Ceftriaxone Sodium 50 ml @ 100 mls/hr DAILY@09 IV 04/24/25 09:00 04/26/25 09:53 100 MLS/HR Risperidone 1.5 mg HS PO 04/24/25 22:00 04/25/25 21:54 1.5 MG Temazepam 30 mg HSPRN PRN PO 04/24/25 19:15 04/24/25 21:44 30 MG Laboratory Results Laboratory Tests 04/26/25 06:06 Chemistry Test 04/26/25 06:06 Calcium Level 8.5 mg/dL (8.7-10.4) L Magnesium Level 2.0 mg/dL (1.6-2.6) Phosphorus Level 2.9 mg/dL (2.4-5.1) Urinalysis Test 04/24/25 04:30 Urine Color Yellow (Yellow) Urine Clarity Clear (Clear) Urine pH 5.5 (5.0-9.0) Urine Specific [place] 1.025 (1.001-1.035) Urine Protein Negative (Negative) Urine Ketones 1+ (Negative) H Urine Blood Negative /uL (Negative) Urine Nitrite Negative (Negative) Urine Bilirubin Negative (Negative) Urine Urobilinogen Normal mg/dL (Negative) Urine Leukocyte Esterase 1+ /uL (Negative) Urine RBC 2 /hpf (0 - 4) Urine Microscopic WBC 13 /HPF (0-5) H Urine Squamous Epithelial Cells Few /hpf (<5) Urine Bacteria None seen /hpf (None Seen) Urine Mucus Few (None Seen) Urine Glucose Normal mg/dL (Normal) Assessment/Plan Assessment/Plan Left distal femoral fracture- Transfer to [facility] Disorder UTI???- Rocephin IV Plan discussed with: Other Date of Service: Apr 26, 2025 Billing Provider: CARLOS PAULA MD Common Visit Codes: [id number] INP/OBS CARE(HIGH) CARLOS PAULA MD Apr 26, 2025 15:49
[2025-04-27] VITALS (7 sets, daily range): BP systolic 105–146; BP diastolic 50–76; PULSE 59–91; RESP 16–19; TEMP 98.4–99; O2SAT 91–96
--- NOTE | 2025-04-27 15:38 | DVHPN2 ---
Subjective pending HLOC transfer, [facility] pending bed. starting lovenox. incentive denise Changes from previous H/P or p: No Changes Objective Vitals Vital Signs Date Time Temp Pulse Resp B/P (MAP) Pulse Ox O2 Delivery O2 Flow Rate FiO2 04/27/25 08:00 95 Room Air* 0 21 04/27/25 05:00 98.5 79 19 110/63 (79) 98.5 Intake/Output Intake and Output 04/27/25 07:00 Intake Total 1110 ml Balance 1110 ml Intake Oral 1110 ml # Voids 7 Medications Current Medications Medications Dose Ordered Sig/Josafat Route Start Time Stop Time Status Last Admin Dose Admin Acetaminophen/ Hydrocodone Bitart 1 tab Q4HP PRN PO 04/22/25 22:00 04/26/25 03:14 1 TAB Ondansetron HCl 4 mg Q4HP PRN IV 04/22/25 22:00 Acetaminophen 650 mg Q6HP PRN PO 04/22/25 22:00 Morphine Sulfate 2 mg Q6HPRN PRN IV 04/22/25 22:00 04/24/25 04:00 2 MG Ceftriaxone Sodium 50 ml @ 100 mls/hr DAILY@09 IV 04/24/25 09:00 04/27/25 10:37 100 MLS/HR Risperidone 1.5 mg HS PO 04/24/25 22:00 04/26/25 21:42 1.5 MG Temazepam 30 mg HSPRN PRN PO 04/24/25 19:15 04/24/25 21:44 30 MG Laboratory Results Laboratory Tests 04/26/25 06:06 Urinalysis Test 04/24/25 04:30 Urine Color Yellow (Yellow) Urine Clarity Clear (Clear) Urine pH 5.5 (5.0-9.0) Urine Specific [place] 1.025 (1.001-1.035) Urine Protein Negative (Negative) Urine Ketones 1+ (Negative) H Urine Blood Negative /uL (Negative) Urine Nitrite Negative (Negative) Urine Bilirubin Negative (Negative) Urine Urobilinogen Normal mg/dL (Negative) Urine Leukocyte Esterase 1+ /uL (Negative) Urine RBC 2 /hpf (0 - 4) Urine Microscopic WBC 13 /HPF (0-5) H Urine Squamous Epithelial Cells Few /hpf (<5) Urine Bacteria None seen /hpf (None Seen) Urine Mucus Few (None Seen) Urine Glucose Normal mg/dL (Normal) Assessment/Plan Assessment/Plan Left distal femoral fracture- Transfer to [facility] Pscyh Disorder UTI???- Rocephin IV Plan discussed with: Daughter My Orders Orders - CARLOS PAULA MD Procedure Category Date Status Time Enoxaparin Sodium PHA 04/28/25 Verified (Lovenox) 06:00 Incentive Spirometry ORDERS 04/27/25 Verified 15:36 Complete Blood Count LAB 04/28/25 Verified 04:00 B-Type Natriuretic LAB 04/28/25 Verified Peptide 04:00 Comprehensive LAB 04/28/25 Verified Metabolic Panel 04:00 Magnesium LAB 04/28/25 Verified 04:00 Phosphorus LAB 04/28/25 Verified 04:00 PTPTT LAB 04/28/25 Verified 04:00 Date of Service: Apr 27, 2025 Billing Provider: CARLOS PAULA MD Common Visit Codes: [id number] INP/OBS CARE(HIGH) CARLOS PAULA MD Apr 27, 2025 15:38
[2025-04-28 05:43] VITALS: BP 123/55; PULSE 84; RESP 18; TEMP 99.3; O2SAT 93
[2025-04-28] MEDS: ENOXAPARIN SOD 40 MG/0.4 ML SYRINGE SC SCH (05:50)
[2025-04-28 06:31] LABS: Basophils # (auto) 0 10 ^3/uL (0-0.2); Basophils % (auto) 0.3 % (0.0-2.0); Eosinophils # (auto) 0.1 10 ^3/uL (0-0.8); Eosinophils % (auto) 1.4 % (0.0-7.0); Hematocrit 34.6 % (36.0-46.0); Hemoglobin 11.9 g/dL (12.2-16.2); Lymphocytes % (auto) 12.1 % (10.0-50.0); Mean Corpuscular Hemoglobin 30.9 pg (28.0-32.0); Mean Corpuscular Hgb Conc. 34.5 g/dL (32.0-36.0); Mean Corpuscular Volume 89.6 fL (80.0-100.0); Monocytes # (auto) 0.8 10 ^3/uL (0-1.3); Monocytes % (auto) 10.7 % (0.0-12.0); Neutrophils % (auto) 75.5 % (37.0-80.0); Nucleated Red Blood Cells % 0.1 %; Platelet Count (auto) 321 10^3/uL (140-450); Red Blood Cells 3.87 10^6/uL (4.0-5.20); Red Cell Distribution Width 13.3 % (11.8-14.3); White Blood Cell 7.9 10^3/uL (4.4-10.8)
[2025-04-28 06:32] LABS: Albumin 3.9 g/dL (3.2-4.8); Alkaline Phosphatase 91 U/L (46-116); Anion Gap 10 (5-15); Aspartate Aminotransferase 12 U/L (<34); BUN/Creatinine Ratio 31.4 (10.0-20.0); Bilirubin, Total 0.7 mg/dL (0.2-1.0); Blood Urea Nitrogen 16 mg/dL (9-23); Carbon Dioxide 23 mmol/L (20-31); Magnesium 2.3 mg/dL (1.6-2.6); Phosphorus 3.3 mg/dL (2.4-5.1); Potassium 4.1 mmol/L (3.5-5.1); Sodium 141 mmol/L (136-145); Total Protein 6.5 g/dL (5.7-8.2)
[2025-04-28 06:40] LABS: INR 1.04 (0.9-1.15); Partial Thromboplastin Time 28.1 SEC (24.5-34.5)
[2025-04-28 06:50] LABS: Alanine Aminotransferase 9 U/L (7-40); Chloride 108 mmol/L (98-107); Glucose 112 mg/dL (74-106)
[2025-04-28 08:00] VITALS: O2SAT 95
[2025-04-28 09:00] VITALS: BP 134/84; PULSE 74; RESP 18; TEMP 97.8; O2SAT 98
[2025-04-28 13:00] VITALS: BP 106/61; PULSE 84; RESP 18; TEMP 97.9; O2SAT 93
--- NOTE | 2025-04-28 14:24 | DVHPN2 ---
Subjective pending bed in [facility] for HLOC. c/w incentive denise Changes from previous H/P or p: No Changes Objective Vitals Vital Signs Date Time Temp Pulse Resp B/P (MAP) Pulse Ox O2 Delivery O2 Flow Rate FiO2 04/28/25 05:43 99.3 84 18 123/55 (77) 93 99.3 04/27/25 20:00 Room Air* 0 21 Intake/Output Intake and Output 04/28/25 07:00 Intake Total 1000 ml Balance 1000 ml Intake Oral 1000 ml # Voids 7 # Bowel Movements 3 Medications Current Medications Medications Dose Ordered Sig/Josafat Route Start Time Stop Time Status Last Admin Dose Admin Acetaminophen/ Hydrocodone Bitart 1 tab Q4HP PRN PO 04/22/25 22:00 04/26/25 03:14 1 TAB Ondansetron HCl 4 mg Q4HP PRN IV 04/22/25 22:00 Acetaminophen 650 mg Q6HP PRN PO 04/22/25 22:00 Morphine Sulfate 2 mg Q6HPRN PRN IV 04/22/25 22:00 04/24/25 04:00 2 MG Ceftriaxone Sodium 50 ml @ 100 mls/hr DAILY@09 IV 04/24/25 09:00 04/28/25 10:42 100 MLS/HR Risperidone 1.5 mg HS PO 04/24/25 22:00 04/27/25 21:30 1.5 MG Temazepam 30 mg HSPRN PRN PO 04/24/25 19:15 04/24/25 21:44 30 MG Enoxaparin Sodium 40 mg DAILY SC 04/28/25 06:00 04/28/25 10:43 40 MG Laboratory Results Laboratory Tests 04/28/25 05:40 Chemistry Test 04/28/25 05:40 Albumin 3.9 g/dL (3.2-4.8) Calcium Level 9.0 mg/dL (8.7-10.4) Magnesium Level 2.3 mg/dL (1.6-2.6) Phosphorus Level 3.3 mg/dL (2.4-5.1) Total Protein 6.5 g/dL (5.7-8.2) Coagulation Test 04/28/25 05:40 Prothrombin Time 11.0 sec (9.3-11.8) Prothrombin Time INR 1.04 (0.9-1.15) Activated Partial Thromboplast Time 28.1 SEC (24.5-34.5) Cardiac Markers Test 04/28/25 05:40 B-Type Natriuretic Peptide 67.15 pg/mL (0-100) LFT Test 04/28/25 05:40 Alanine Aminotransferase (ALT) 9 U/L (7-40) Alkaline Phosphatase 91 U/L (46-116) Aspartate Amino Transferase (AST) 12 U/L (<34) Total Bilirubin 0.7 mg/dL (0.2-1.0) Urinalysis Test 04/24/25 04:30 Urine Color Yellow (Yellow) Urine Clarity Clear (Clear) Urine pH 5.5 (5.0-9.0) Urine Specific [place] 1.025 (1.001-1.035) Urine Protein Negative (Negative) Urine Ketones 1+ (Negative) H Urine Blood Negative /uL (Negative) Urine Nitrite Negative (Negative) Urine Bilirubin Negative (Negative) Urine Urobilinogen Normal mg/dL (Negative) Urine Leukocyte Esterase 1+ /uL (Negative) Urine RBC 2 /hpf (0 - 4) Urine Microscopic WBC 13 /HPF (0-5) H Urine Squamous Epithelial Cells Few /hpf (<5) Urine Bacteria None seen /hpf (None Seen) Urine Mucus Few (None Seen) Urine Glucose Normal mg/dL (Normal) Assessment/Plan Assessment/Plan [facility]- Rocephin IV incentive denise dcvt ppx lovenox Plan discussed with: Daughter My Orders Orders - CARLOS PAULA MD Procedure Category Date Status Time Enoxaparin Sodium PHA 04/28/25 In Process (Lovenox) 06:00 Incentive Spirometry ORDERS 04/27/25 Transmitted 15:36 Soft Diet DIET 04/28/25 Transmitted Dinner Date of Service: Apr 28, 2025 Billing Provider: CARLOS PAULA MD Common Visit Codes: [id number] INP/OBS CARE(HIGH) CARLOS PAULA MD Apr 28, 2025 14:24
[2025-04-28 17:00] VITALS: BP 111/70; PULSE 79; RESP 18; TEMP 98; O2SAT 95
== END 2025-04-28 22:40 | disposition short-term general hospital (02) | DRG 534 ==
LOC: EDBD 18:46 → ER 18:50 → OVERFLOW 21:58 → EAST 22:02
PROVIDERS: ADMIT Student in an Organized Health Care Education/Training Program; ATTEND Student in an Organized Health Care Education/Training Program
DX: S72.402A Unspecified fracture of lower end of left femur, initial encounter for closed fracture (principal); N39.0 Urinary tract infection, site not specified; F03.90 Unspecified dementia, unspecified severity, without behavioral disturbance, psychotic disturbance, mood disturbance, and anxiety; W18.39XA Other fall on same level, initial encounter; Y93.89 Activity, other specified; Y92.89 Other specified places as the place of occurrence of the external cause; Y99.8 Other external cause status; Z85.3 Personal history of malignant neoplasm of breast; Z79.899 Other long term (current) drug therapy
CPT/HCPCS: 36415; 71045; 73564; 73700; 80048; 80053; 81001; 83735; 83880; 84100; 85025; 85610; 85730; 86850; 86900; 86901; G0378

== ENCOUNTER 2025-05-07 16:07 | Inpatient (IN) | payer OTHER ==
[~2025-05-07] VITALS: Ht 157.5 cm; Wt 42.3 kg
[~2025-05-07 16:07] MED LIST changes: +CHOL20007 PO; -CIPR-173 PO; +FER300LQ GT; +LORA-1121 PO; +RISP1TAB63 PO; +TEMA30CA PO
[2025-05-07 16:36] VITALS: PULSE 80; RESP 20; O2SAT 98
--- NOTE | 2025-05-07 16:51 | ED.PDOC ---
Altered Mental Status HPI Comments 79 y/o F, BIBA, with PMHx of anemia, anxiety, cancer, dementia, depression, and seizures presents to the ED for CC of ALOC. EMS reports, patient is coming from [facility] where staff called d/t patient displaying altered and disoriented behavior as of this morning (05/07/25). Per EMS, staff relayed p atient to be screaming in pain however; patient endorses to have no pain at this time. At this time patient is A&Ox1 which is her baseline. No other symptoms or modifying factors present at this time. Chief Complaint: ALOC Time Seen by MD: 16:15 Primary Care Provider: n/a Reviewed Notes: Nurses Notes, Supervisor Receiving And Processing Notes, Medications, Allergies Allergies: Coded Allergies: Pseudoephedrine (Verified Allergy, Unknown, 11/15/24) Home Meds Active Scripts Acetaminophen (Tylenol) 650 Mg Rc, 650 MG MO Q6HPRN PRN for 12 Days, #90 SUPP.RECT Prov:JORDANA OLIVEIRA MD 11/15/24 Reported Medications Cholecalciferol (VITAMIN D3) 2,000 Unit Tab, 1 TAB PO DAILY, #30 TAB 5 Refills 04/23/25 Ferrous Sulfate (Ferrous Sulfate) 300 Mg/5 Ml Sr, 325 MG GT, SYP 04/23/25 Lorazepam (ATIVAN TABLET) 0.5 Mg Tb, 1 TAB PO BID, #90 TAB 04/23/25 Temazepam (Temazepam) 30 Mg Cap, 1 CAP PO QPM, #30 CAP 1 Refill 04/23/25 Risperidone (Risperidone) 1 Mg Tab, 1 TAB PO QPM, #30 TAB 1 Refill 04/23/25 Information Source: Emergency Med Personnel Mode of Arrival: EMS Severity: Moderate Timing: Minutes Duration: Since onset Prehospital treatment: None Quality: Change in Behavior History of: Dementia Associated Signs and Symptoms: None Past Medical History PAST MEDICAL HISTORY: Anemia, Anxiety, Cancer, Dementia, Depression, Seizures 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 Family History Family History: Reviewed,noncontributory to illness Social History Smoker: Non-Smoker Alcohol: Denies ETOH Use Drugs: Denies Drug Use Lives In: [facility] Unable to Obtain due to: Altered Mental Status All Other Systems: Reviewed and Negative Physical Exam General Appearance: Thin, Other (fraile) HEENT: Normal ENT Inspection, Pharynx Normal, TMs Normal Neck: Full Range of Motion, Non-Tender, Normal, Normal Inspection Respiratory: Chest Non-Tender, Lungs Clear, No Accessory Muscle Use, No Respiratory Distress, Normal Breath Sounds Cardiovascular: No Edema, No JVD, No Murmur, No Gallop, Normal Peripheral Pulses, Regular Rate/Rhythm Breast Exam: Deferred Gastrointestinal: No Organomegaly, Non Tender, No Pulsatile Mass, Normal Bowel Sounds, Soft Genitalia: Deferred Pelvic: Deferred Rectal: Deferred Extremities: No calf tenderness, Normal capillary refill, Normal inspection, Normal range of motion, Non-tender, No pedal edema Musculoskeletal : Apperance: Normal Neurologic: chemical economist II-XII nml as Tested, Disoriented, No Motor Deficits, No Sensory Deficits, Other (altered) Cerebellar Function: Normal Reflexes: Normal Skin: Dry, Normal Color, Warm Lymphatic: No Adenopathy Was a procedure done? Was a procedure done?: No Differential Diagnosis (ALOC) Differential Diagnosis: Dehydration, Hypoglycemia, Other (UTI) X-Ray, Labs, Meds, VS Vital Signs Date Time Temp Pulse Resp B/P (MAP) Pulse Ox O2 Delivery O2 Flow Rate FiO2 05/07/25 20:58 98.2 94 18 137/75 (95) 94 98.2 05/07/25 20:58 94 18 94 Room Air* 0 21 05/07/25 18:00 79 17 128/59 (82) 100 05/07/25 16:36 98.8 80 26 128/58 (81) 98 98.8 05/07/25 16:36 80 20 98 Room Air* 0 21 05/07/25 16:30 98.5 93 16 128/82 (97) 95 98.5 Lab Test 05/07/25 20:25 05/07/25 17:00 05/07/25 16:27 Range/Units Urine Color Colorless Yellow Urine Clarity Ex.turbid Clear Urine pH 8.0 5.0-9.0 Urine Specific [place] 1.014 1.001-1.035 Urine Protein Negative Negative Urine Ketones Negative Negative Urine Blood Trace H Negative /uL Urine Nitrite Negative Negative Urine Bilirubin Negative Negative Urine Urobilinogen 3 H Negative mg/dL Urine Leukocyte Esterase 2+ Negative /uL Urine RBC 9 0 - 4 /hpf Urine Microscopic WBC 53 H 0-5 /HPF Urine Squamous Epithelial Cells Many <5 /hpf Urine Amorphous Crystals Few None Seen /hpf Urine Bacteria Mod H None Seen /hpf Urine Glucose Normal Normal mg/dL White Blood Count 9.6 4.4-10.8 10^3/uL Red Blood Count 3.55 L 4.0-5.20 10^6/uL Hemoglobin 10.7 L 12.2-16.2 g/dL Hematocrit 31.8 L 36.0-46.0 % Mean Corpuscular Volume 89.6 80.0-100.0 fL Mean Corpuscular Hemoglobin 30.2 28.0-32.0 pg Mean Corpuscular Hemoglobin Concent 33.7 32.0-36.0 g/dL Red Cell Distribution Width 13.6 11.8-14.3 % Platelet Count 430 140-450 10^3/uL Mean Platelet Volume 7.3 6.9-10.8 fL Neutrophils (%) (Auto) 79.5 37.0-80.0 % Lymphocytes (%) (Auto) 10.2 10.0-50.0 % Monocytes (%) (Auto) 8.5 0.0-12.0 % Eosinophils (%) (Auto) 1.3 0.0-7.0 % Basophils (%) (Auto) 0.5 0.0-2.0 % Neutrophils # (Auto) 7.6 1.6-8.6 10 ^3/uL Lymphocytes # (Auto) 1.0 0.4-5.4 10 ^3/uL Monocytes # (Auto) 0.8 0-1.3 10 ^3/uL Eosinophils # (Auto) 0.1 0-0.8 10 ^3/uL Basophils # (Auto) 0 0-0.2 10 ^3/uL Nucleated Red Blood Cells 0.0 % Sodium Level 142 136-145 mmol/L Potassium Level 4.3 3.5-5.1 mmol/L Chloride Level 109 H 98-107 mmol/L Carbon Dioxide Level 24 20-31 mmol/L Anion Gap 9 5-15 Blood Urea Nitrogen 19 9-23 mg/dL Creatinine 0.52 L 0.550-1.02 mg/dL Glomerular Filtration Rate Calc 94 >90 mL/min BUN/Creatinine Ratio 36.5 H 10.0-20.0 Serum Glucose 106 74-106 mg/dL Lactic Acid Level 1.0 0.4-2.0 mmol/L Calcium Level 8.8 8.7-10.4 mg/dL Ammonia 21 11-32 umol/L POC Glucose 108 H 70-106 mg/dl [facility] [address] [facility] [id number] Ph: [phone] DIAGNOSTIC IMAGING Diagnostic Imaging Report : [id number] Signed PATIENT: ALBIN WASHINGTON ACCT: [id number] UNIT: [id number] : 1945 LOC: ER ROOM / BED: / AGE / SEX: 79 / F ADM STATUS: REG ER SERVICE 1614 ORDERING PHYSICIAN: KACI COLES PROCEDURE(s): CXR1 - CHEST XRAY 1 VIEW REASON: ALOC ORDER NUMBER(s): [id number], ACCESSION NUMBER(s): [id number] EXAM: XY CHEST XRAY 1 VIEW HISTORY: ALOC COMPARISON: XY CHEST XRAY 1 VIEW on DOS: 04/22/25, XY CHEST PORTABLE on DOS: 11/15/24, XY CHEST PORTABLE on DOS: 04/24/23, XY CHEST PORTABLE on DOS: 03/24/23 TECHNIQUE: Portable upright AP view of the chest was performed. FINDINGS: No pneumothorax, consolidative infiltrates, or pulmonary edema. There is stable irregular density overlying the upper mediastinum. The heart is not enlarged. The bones are diffusely osteopenic. There is an old fracture of the right proximal humerus IMPRESSION: No acute intrathoracic process. ATED BY: JENNIFER CARY MD DICTATED DATE/TIME: 05/07/251656 SIGNED BY: JENNIFER CARY MD SIGNED DATE/TIME: 05/07/251656 CC: X-Ray, Labs, Meds, VS Comment Imaging: X-rays and CT scans were reviewed and interpreted by this provider, imaging shows no fractures and no pathological disease. Pending radiology review. Laboratory: Labs reviewed and interpreted by this provider. Urine shows positive blood positive leukocytes positive bacteria Patient will be admitted for metabolic encephalopathy, urinary tract infection Patient will be started on Rocephin 1 g Patient has prior medical visits reviewed. Med reconciliation performed Vital signs reviewed Time of 1ST Reevaluation: 16:45 Reevaluation 1ST: Unchanged Patient Education/Counseling: Diagnosis, Treatment Family Education/Counseling: No Family Present SEPSIS Sepsis Screen Physician Orders Chest Xray 1 View (05/07/25 16:14) Ceftriaxone 1gm/50ml D5w (Rocephin) (05/07/25 22:00) Vital Signs Date Time Temp Pulse Resp B/P (MAP) Pulse Ox O2 Delivery O2 Flow Rate FiO2 05/07/25 20:58 98.2 94 18 137/75 (95) 94 98.2 05/07/25 20:58 94 18 94 Room Air* 0 21 05/07/25 18:00 79 17 128/59 (82) 100 05/07/25 16:36 98.8 80 26 128/58 (81) 98 98.8 05/07/25 16:36 80 20 98 Room Air* 0 21 05/07/25 16:30 98.5 93 16 128/82 (97) 95 98.5 Laboratory Tests Test 05/07/25 17:00 Lactic Acid Level 1.0 mmol/L (0.4-2.0) White Blood Count 9.6 10^3/uL (4.4-10.8) Departure 1 Departure Time of Disposition: 21:58 Impression: Primary Impression: Metabolic encephalopathy Additional Impressions: Altered mental status Qualified Codes: R41.0 - Disorientation, unspecified UTI (urinary tract infection) Qualified Codes: N30.01 - Acute cystitis with hematuria Disposition: ADMITTED INPATIENT Condition: Stable Discharged With: Self Critical Care Note Critical Care Time?: No Stability Stability form required: No Heart Score Heart Score: Heart Score Response (Comments) Value History N/A 0 EKG N/A 0 Age N/A 0 Risk Factors N/A 0 Troponin N/A 0 Total 0 I personally scribed for KACI COLES [place] KNITTER ([email or web address]) on 05/07/25 at 16:51. Electronically submitted by Tatiana Rivera [email or web address]). I personally scribed for KACI COLES J[place]SE[place] KNITTER ([email or web address]) on 05/07/25 at 17:16. Electronically submitted by Tatiana Rivera [email or web address]). KACI COLES J[place]SE[place] KNITTER May 07, 2025 16:51
--- NOTE | 2025-05-07 16:59 | DVH ---
EXAM: XY CHEST XRAY 1 VIEW HISTORY: ALOC COMPARISON: XY CHEST XRAY 1 VIEW on DOS: 04/22/25, XY CHEST PORTABLE on DOS: 11/15/24, XY CHEST PORTABL E on DOS: 04/24/23, XY CHEST PORTABLE on DOS: 03/24/23 TECHNIQUE: Portable upright AP view of the chest was performed. FINDINGS: No pneumothorax, consolidative infiltrates, or pulmonary edema. There is stable irregular density ove rlying the upper mediastinum. The heart is not enlarged. The bones are diffusely osteopenic. There is an old fracture of the right proximal humerus IMPRESSION: No acute intrathoracic process.
[2025-05-07 17:18] LABS: Potassium 4.3 mmol/L (3.5-5.1); Sodium 142 mmol/L (136-145)
[2025-05-07 17:19] LABS: Anion Gap 9 (5-15); Carbon Dioxide 24 mmol/L (20-31)
[2025-05-07 17:20] LABS: Calcium 8.8 mg/dL (8.7-10.4)
[2025-05-07 17:23] LABS: Chloride 109 mmol/L (98-107)
[2025-05-07 17:24] LABS: Glucose 106 mg/dL (74-106)
[2025-05-07 17:25] LABS: BUN/Creatinine Ratio 36.5 (10.0-20.0); Blood Urea Nitrogen 19 mg/dL (9-23)
[2025-05-07 17:40] LABS: Hematocrit 31.8 % (36.0-46.0); Hemoglobin 10.7 g/dL (12.2-16.2); Mean Corpuscular Hemoglobin 30.2 pg (28.0-32.0); Mean Corpuscular Volume 89.6 fL (80.0-100.0); Nucleated Red Blood Cells % 0.0 %
[2025-05-07 20:38] LABS: Urine Amorphous Crystal FEW /hpf (None Seen); Urine Protein, UAD Negative (Negative)
[2025-05-07 20:58] VITALS: PULSE 94; RESP 18; O2SAT 94
[2025-05-07] MEDS: cefTRIAXone 1GM/50ML D5W 50 ML IV ONE (22:01)
[2025-05-07] MEDS ORDERED: ONDANSETRON HCL 4 MG/2 ML VIAL IV PRN (22:45)
[2025-05-07] MEDS ORDERED: HYDROcodone-ACET 5/325MG TAB PO PRN (22:45)
[2025-05-07] MEDS ORDERED: DOCUSATE SOD 100 MG CAP PO PRN (22:45)
--- NOTE | 2025-05-07 23:12 | DVHHP2 ---
History of Present Illness Reason for Visit: Metabolic encephalopathy History of Present Illness The patient is a 79-year-old female with past medical history of anxiety, cancer, dementia, depression, seizures, and anemia who presented to [facility] ED for evaluation of altered level of consciousness. As reported, patient currently residing at [facility] where nursing staff called regarding patient's change in mental status, became altered, disoriented behavior, screaming in pain. Patient was seen and evaluated in the ED, laboratory data shows WBC 9.6, hemoglobin 10.7, hematocrit 31.8, platelets 430, sodium 142, potassium 4.3, BUN 19, creatinine 0.52, glucose 106, calcium 8.8, ammonia 21, lactic acid 1.0, blood pressure 139/75, heart rate 94, temperature 98.2 F, O2 saturation 98% on room air. Urinalysis positive for urinary tract infection. Chest x-ray show no acute intrathoracic process. Patient was started on IV antibiotic regimen Rocephin, please see medication section in the computer. On my assessment, patient denies chest pain, no headache, no dizziness, no diaphoresis, no shortness of breaths, no nausea, no vomiting, no fever, no chills. Patient was admitted for further evaluation and medical management. Past Medical History Anemia, Anxiety, Cancer, Dementia, Depression, Seizures Past Surgical History Left knee surgery Family History Reviewed, noncontributory to the management of this case. Past Social History The patient lives at halfway facility, denies smoking, alcohol or illicit drugs abuse. Review of Systems Constitutional: Yes: Weakness; No: Fever, Chills, Sweats, Malaise, Other Eyes: No: Pain, Vision change, Conjunctivae inflammation, Eyelid inflammation, Other, Redness ENT: No: Ear pain, Ear discharge, Nose pain, Nose discharge, Nose congestion, Mouth pain, Mouth swelling, Throat pain, Throat swelling, Other Respiratory: No: Cough, Dry, Shortness of breath, SOB with excertion, Wheezing, Hemoptysis, Pleuritic Pain, Sputum, Wheezing, Other Cardiovascular: No: Chest Pain, Palpitations, Orthopnea, Paroxysmal Noc. Dyspnea, Edema, Lt Headedness, Other Gastrointestinal: No: Nausea, Vomiting, Abdominal Pain, Diarrhea, Constipation, Melena, Hematochezia, Other Genitourinary: No Dysuria, No Frequency, No Incontinence, No Hematuria, No Retention, No Other Musculoskeletal: other (Left knee pain); No: neck pain, shoulder pain, arm pain, back pain, hand pain, leg pain, foot pain Skin: Other (Left knee dressing); No: Rash, Lesions, Jaundice, Bruising Neurological: No: Weakness, Numbness, Incoordination, Change in speech, Confusion, Seizures, Other Allergies: Coded Allergies: Pseudoephedrine (Verified Allergy, Unknown, 11/15/24) Medications Current Medications Medications Dose Ordered Sig/Josafat Route Start Time Stop Time Status Last Admin Dose Admin Ceftriaxone Sodium 50 ml @ 100 mls/hr DAILY@2100 IV 05/08/25 21:00 Risperidone 1 mg DAILY PO 05/08/25 10:00 Sodium Chloride 10 ml Q8HR IV 05/08/25 06:00 Acetaminophen/ Hydrocodone Bitart 1 tab Q4HP PRN PO 05/07/25 22:45 Ondansetron HCl 4 mg Q4HP PRN IV 05/07/25 22:45 Docusate Sodium 100 mg BIDPRN PRN PO 05/07/25 22:45 Acetaminophen 500 mg Q6HP PRN PO 05/07/25 22:45 Melatonin 5 mg HS PO 05/08/25 22:00 Exam Vital Signs Vital Signs Date Time Temp Pulse Resp B/P (MAP) Pulse Ox O2 Delivery O2 Flow Rate FiO2 05/07/25 22:06 93 26 139/75 (96) 98 05/07/25 20:58 98.2 98.2 05/07/25 20:58 Room Air* 0 21 General Appearance: Alert, Cooperative, No acute distress, Other (Oriented x2) HEENT: Atraumatic, PERRLA, EOMI, Mucous membr. moist/pink Respiratory: Normal air movement Cardiovascular: Regular rate, Normal S1, Normal S2, No murmurs Abdominal: Normal bowel sounds, Soft, No tenderness, No hepatospenomegaly, No masses Extremities: No clubbing, No cyanosis, No edema, Normal pulses, Other (Left knee tenderness) Skin: No rashes, No breakdown, No significant lesion Neuro: Normal speech, Normal tone, Sensation intact, Cranial nerves 3-12 NL, Reflexes 2+, Other (Generalized weakness) Psych/Mental Status: Mental status NL, Mood NL Labs/Xrays Labs Test 05/07/25 20:25 05/07/25 17:00 05/07/25 16:27 Range/Units Urine Color Colorless Yellow Urine Clarity Ex.turbid Clear Urine pH 8.0 5.0-9.0 Urine Specific [place] 1.014 1.001-1.035 Urine Protein Negative Negative Urine Ketones Negative Negative Urine Blood Trace H Negative /uL Urine Nitrite Negative Negative Urine Bilirubin Negative Negative Urine Urobilinogen 3 H Negative mg/dL Urine Leukocyte Esterase 2+ Negative /uL Urine RBC 9 0 - 4 /hpf Urine Microscopic WBC 53 H 0-5 /HPF Urine Squamous Epithelial Cells Many <5 /hpf Urine Amorphous Crystals Few None Seen /hpf Urine Bacteria Mod H None Seen /hpf Urine Glucose Normal Normal mg/dL White Blood Count 9.6 4.4-10.8 10^3/uL Red Blood Count 3.55 L 4.0-5.20 10^6/uL Hemoglobin 10.7 L 12.2-16.2 g/dL Hematocrit 31.8 L 36.0-46.0 % Mean Corpuscular Volume 89.6 80.0-100.0 fL Mean Corpuscular Hemoglobin 30.2 28.0-32.0 pg Mean Corpuscular Hemoglobin Concent 33.7 32.0-36.0 g/dL Red Cell Distribution Width 13.6 11.8-14.3 % Platelet Count 430 140-450 10^3/uL Mean Platelet Volume 7.3 6.9-10.8 fL Neutrophils (%) (Auto) 79.5 37.0-80.0 % Lymphocytes (%) (Auto) 10.2 10.0-50.0 % Monocytes (%) (Auto) 8.5 0.0-12.0 % Eosinophils (%) (Auto) 1.3 0.0-7.0 % Basophils (%) (Auto) 0.5 0.0-2.0 % Neutrophils # (Auto) 7.6 1.6-8.6 10 ^3/uL Lymphocytes # (Auto) 1.0 0.4-5.4 10 ^3/uL Monocytes # (Auto) 0.8 0-1.3 10 ^3/uL Eosinophils # (Auto) 0.1 0-0.8 10 ^3/uL Basophils # (Auto) 0 0-0.2 10 ^3/uL Nucleated Red Blood Cells 0.0 % Sodium Level 142 136-145 mmol/L Potassium Level 4.3 3.5-5.1 mmol/L Chloride Level 109 H 98-107 mmol/L Carbon Dioxide Level 24 20-31 mmol/L Anion Gap 9 5-15 Blood Urea Nitrogen 19 9-23 mg/dL Creatinine 0.52 L 0.550-1.02 mg/dL Glomerular Filtration Rate Calc 94 >90 mL/min BUN/Creatinine Ratio 36.5 H 10.0-20.0 Serum Glucose 106 74-106 mg/dL Lactic Acid Level 1.0 0.4-2.0 mmol/L Calcium Level 8.8 8.7-10.4 mg/dL Ammonia 21 11-32 umol/L POC Glucose 108 H 70-106 mg/dl PATIENT: ALBIN WASHINGTON ACCT: [id number] UNIT: [id number] : 1945 LOC: ER ROOM / BED: / AGE / SEX: 79 / F ADM STATUS: REG ER SERVICE 1614 ORDERING PHYSICIAN: KACI COLES PROCEDURE(s): CXR1 - CHEST XRAY 1 VIEW REASON: ALOC ORDER NUMBER(s): [id number], ACCESSION NUMBER(s): [id number] EXAM: XY CHEST XRAY 1 VIEW HISTORY: ALOC COMPARISON: XY CHEST XRAY 1 VIEW on DOS: 04/22/25, XY CHEST PORTABLE on DOS: 11/15/24, XY CHEST PORTABLE on DOS: 04/24/23, XY CHEST PORTABLE on DOS: 03/24/23 TECHNIQUE: Portable upright AP view of the chest was performed. FINDINGS: No pneumothorax, consolidative infiltrates, or pulmonary edema. There is stable irregular density overlying the upper mediastinum. The heart is not enlarged. The bones are diffusely osteopenic. There is an old fracture of the right proximal humerus IMPRESSION: No acute intrathoracic process. Assessment/Plan Assessment/Plan Metabolic encephalopathy Altered mental status Disorientation, unspecified UTI (urinary tract infection) Acute cystitis without hematuria Plan 1. Admit to telemetry unit 2. Breathing treatment 3. Pain control management 4. IV antibiotic management 5. Management of fluids and electrolytes 6. Consultation for hospitalist 7. Diagnostic test chest x-ray 8. DVT prophylaxis-on Lovenox 9. Repeat labs CBC, CMP in a.m. 10. Home medication reviewed and reconciled 11. Continue with current medical management 12. Treatment plan discussed with patient and RN. Patient verbalized understanding. Plan discussed with: Patient, Other (RN) My Orders Orders - EAMON CHANG DNP Procedure Category Date Status Time Urine Bacterial RODRIGO 05/07/25 Logged Culture 22:44 Ceftriaxone 1gm/50ml PHA 05/08/25 In Process D5w (Rocephin) 21:00 Risperidone Tablet PHA 05/08/25 In Process (Risperdal Tablet) 10:00 Allergies ANAHI 05/07/25 In Process 22:44 Code Status CODE 05/07/25 Transmitted 22:44 Sodium Chloride Lock PHA 05/08/25 In Process (Saline Lock Ns) 06:00 Oxygen Per Hour RT 05/07/25 Transmitted 22:44 Hydrocodone-Acet PHA 05/07/25 In Process 5/325mg Tab (Bowman 22:45 Ondansetron Hcl PHA 05/07/25 In Process (Zofran) 22:45 Docusate Sodium PHA 05/07/25 In Process Capsule (Colace 22:45 Fall Risk Precautions ANAHI 05/07/[address] 22:44 Complete Blood Count LAB 05/08/25 Verified 04:00 Comprehensive LAB 05/08/25 Verified Metabolic Panel 04:00 Cardiac DIET 05/08/25 Transmitted Diet-2gna,Lofat,Lochol Breakfast Condition: Serious ANAHI 05/07/25 In Process 22:44 Acetaminophen Tablet PHA 05/07/25 In Process (Tylenol Tablet) 22:45 Maintain Bed Rest ANAHI 05/07/25 In Process 22:44 Sequential ANAHI 05/07/25 In Process Compression Device Melatonin (Melatonin) PHA 05/08/25 In Process 22:00 Problem List: (1) Metabolic encephalopathy (2) Altered mental status (3) Disorientation, unspecified (4) UTI (urinary tract infection) (5) Acute cystitis without hematuria Date of Service: May 07, 2025 Billing Provider: EAMON CHANG DNP Common Visit Codes: [id number] INP/OBS CARE (HIGH) EAMON CHANG DNP May 07, 2025 23:12
[2025-05-07] MEDS ORDERED: MORPHINE SULFATE INJ 2 MG/ml SYRG IV PRN (23:15)
[2025-05-07] MEDS ORDERED: NITROGLYCERIN 0.4 MG SL TAB SL PRN (23:15)
[2025-05-08] VITALS (9 sets, daily range): BP systolic 102–160; BP diastolic 52–94; PULSE 61–86; RESP 16–19; TEMP 96.4–99.2; O2SAT 96–97
[2025-05-08 05:42] LABS: Hematocrit 34.8 % (36.0-46.0); Hemoglobin 12.1 g/dL (12.2-16.2); Mean Corpuscular Hemoglobin 31.0 pg (28.0-32.0); Mean Corpuscular Volume 89.5 fL (80.0-100.0); Nucleated Red Blood Cells % 0.0 %
[2025-05-08 05:52] LABS: Alanine Aminotransferase 17 U/L (7-40); Albumin 3.9 g/dL (3.2-4.8); Anion Gap 10 (5-15); BUN/Creatinine Ratio 24.0 (10.0-20.0); Bilirubin, Total 0.8 mg/dL (0.2-1.0); Blood Urea Nitrogen 12 mg/dL (9-23); Calcium 9.0 mg/dL (8.7-10.4); Carbon Dioxide 23 mmol/L (20-31); Chloride 106 mmol/L (98-107); Glucose 105 mg/dL (74-106); Potassium 3.6 mmol/L (3.5-5.1); Sodium 139 mmol/L (136-145); Total Protein 6.5 g/dL (5.7-8.2)
[2025-05-08 05:58] LABS: Alkaline Phosphatase 135 U/L (46-116)
[2025-05-08] MEDS: SODIUM CHLOR 0.9% PF (SALINE LOCK) 10ML VIAL/SYR IV SCH (06:07)
[2025-05-08] MEDS: risperiDONE 1 MG TAB PO SCH (09:46)
[2025-05-08] MEDS: ENOXAPARIN SOD 30 MG/0.3 ML SYRINGE SC SCH (09:46)
--- NOTE | 2025-05-08 15:20 | DVHPN2 ---
Assessment/Plan Assessment/Plan progress note 79 yo F with dementia, bipolar dz with psychotic features, knee fx s/p repair, sent from SNF for ALOC. upon discussion with family member, patient is baseline. concerning for UTI but not ruling out colonization physical exam cachectic aox1 clear breath sounds s1 s2 rrr abdomen soft nontender no LE edema, L knee swelling, no erythema labs ekg imaging reviewed assessment and plan UTI? dementia bipolar disorder with psychotic features knee fx s/p repair protein calorie malnutrition empiric coverage urine culture PT [facility] after PT eval for rehab diet regular dvt ppx asa Plan discussed with: Patient Date of Service: May 08, 2025 Billing Provider: CARLOS PAULA MD Common Visit Codes: [id number] INP/OBS CARE(HIGH) CARLOS PAULA MD May 08, 2025 15:20
[2025-05-08] MEDS: cefTRIAXone 1GM/50ML D5W 50 ML IV SCH (20:23)
[2025-05-08] MEDS: MELATONIN 5 MG TAB PO SCH (21:47)
[2025-05-09] VITALS (8 sets, daily range): BP systolic 92–117; BP diastolic 53–69; PULSE 63–78; RESP 18–19; TEMP 97.8–98.3; O2SAT 93–95
[2025-05-09] MEDS: ACETAMINOPHEN 325 MG TAB PO PRN (12:44)
--- NOTE | 2025-05-09 16:34 | DVHPN2 ---
Assessment/Plan Assessment/Plan progress note 79 yo F with dementia, bipolar dz with psychotic features, knee fx s/p repair, sent from SNF for ALOC. upon discussion with family member, patient is baseline. concerning for UTI but not ruling out colonization seen during rounds, improving. pt rec snf for pt rehab. pending placement physical exam cachectic aox1 clear breath sounds s1 s2 rrr abdomen soft nontender no LE edema, L knee swelling, no erythema labs ekg imaging reviewed assessment and plan UTI? dementia bipolar disorder with psychotic features knee fx s/p repair protein calorie malnutrition empiric coverage urine culture PT eval may return to [facility] tomorrow after PT eval for rehab diet regular dvt ppx asa Plan discussed with: Other My Orders Orders - CARLOS PAULA MD Procedure Category Date Status Time * Drill Presser CONS 05/09/25 Transmitted Consult Ketorolac Injection PHA 05/09/25 In Process (Toradol Injection) 13:45 Communication Order ORDERS 05/09/25 Transmitted 13:31 Date of Service: May 09, 2025 Billing Provider: CARLOS PAULA MD Common Visit Codes: [id number] INP/OBS CARE(HIGH) CARLOS PAULA MD May 09, 2025 16:34
[2025-05-10] VITALS (9 sets, daily range): BP systolic 110–129; BP diastolic 64–88; PULSE 63–80; RESP 18–22; TEMP 97.4–98.8; O2SAT 96–98
[2025-05-10] MEDS: KETOROLAC TROMETH 30 MG/ML 1ML VIAL IV PRN (10:03)
--- NOTE | 2025-05-10 12:25 | DVHDS2 ---
Discharge Summary Date of Admission May 07, 2025 at 23:11 Date of Discharge: May 10, 2025 Labs/Diagnostic Data: Laboratory Results Test 05/08/25 04:40 05/07/25 20:25 05/07/25 17:00 05/07/25 16:27 White Blood Count 9.7 10^3/uL (4.4-10.8) Red Blood Count 3.89 10^6/uL (4.0-5.20) Hemoglobin 12.1 g/dL (12.2-16.2) Hematocrit 34.8 % (36.0-46.0) Mean Corpuscular Volume 89.5 fL (80.0-100.0) Mean Corpuscular Hemoglobin 31.0 pg (28.0-32.0) Mean Corpuscular Hemoglobin Concent 34.6 g/dL (32.0-36.0) Red Cell Distribution Width 13.5 % (11.8-14.3) Platelet Count 472 10^3/uL (140-450) Mean Platelet Volume 7.2 fL (6.9-10.8) Neutrophils (%) (Auto) 78.9 % (37.0-80.0) Lymphocytes (%) (Auto) 9.1 % (10.0-50.0) Monocytes (%) (Auto) 10.3 % (0.0-12.0) Eosinophils (%) (Auto) 1.1 % (0.0-7.0) Basophils (%) (Auto) 0.6 % (0.0-2.0) Neutrophils # (Auto) 7.6 10 ^3/uL (1.6-8.6) Lymphocytes # (Auto) 0.9 10 ^3/uL (0.4-5.4) Monocytes # (Auto) 1.0 10 ^3/uL (0-1.3) Eosinophils # (Auto) 0.1 10 ^3/uL (0-0.8) Basophils # (Auto) 0.1 10 ^3/uL (0-0.2) Nucleated Red Blood Cells 0.0 % Sodium Level 139 mmol/L (136-145) Potassium Level 3.6 mmol/L (3.5-5.1) Chloride Level 106 mmol/L (98-107) Carbon Dioxide Level 23 mmol/L (20-31) Anion Gap 10 (5-15) Blood Urea Nitrogen 12 mg/dL (9-23) Creatinine 0.50 mg/dL (0.550-1.02) Glomerular Filtration Rate Calc 95 mL/min (>90) BUN/Creatinine Ratio 24.0 (10.0-20.0) Serum Glucose 105 mg/dL (74-106) Calcium Level 9.0 mg/dL (8.7-10.4) Total Bilirubin 0.8 mg/dL (0.2-1.0) Aspartate Amino Transferase (AST) 16 U/L (13-40) Alanine Aminotransferase (ALT) 17 U/L (7-40) Alkaline Phosphatase 135 U/L (46-116) Total Protein 6.5 g/dL (5.7-8.2) Albumin 3.9 g/dL (3.2-4.8) Urine Color Colorless (Yellow) Urine Clarity Ex.turbid (Clear) Urine pH 8.0 (5.0-9.0) Urine Specific [place] 1.014 (1.001-1.035) Urine Protein Negative (Negative) Urine Ketones Negative (Negative) Urine Blood Trace /uL (Negative) Urine Nitrite Negative (Negative) Urine Bilirubin Negative (Negative) Urine Urobilinogen 3 mg/dL (Negative) Urine Leukocyte Esterase 2+ /uL (Negative) Urine RBC 9 /hpf (0 - 4) Urine Microscopic WBC 53 /HPF (0-5) Urine Squamous Epithelial Cells Many /hpf (<5) Urine Amorphous Crystals Few /hpf (None Seen) Urine Bacteria Mod /hpf (None Seen) Urine Glucose Normal mg/dL (Normal) Lactic Acid Level 1.0 mmol/L (0.4-2.0) Ammonia 21 umol/L (11-32) POC Glucose 108 mg/dl (70-106) Other Laboratory Tests 05/08/25 04:40 Brief Hx & Hospital Course: 79 yo F with dementia, bipolar dz with psychotic features, knee fx s/p repair, sent from SNF for ALOC. upon discussion with family member, patient is baseline. concerning for UTI but not ruling out colonization. seen by PT and was rec snf for rehab. pt not on 1:1. Condition at Discharge: Good Final Diagnosis/Problems List UTI? dementia bipolar disorder with psychotic features knee fx s/p repair protein calorie malnutrition Discharge Disposition: [facility] Facility Discharge Instruct/Medications Diet: Regular Activity: No Restrictions, As Tolerated Scheduled Cholecalciferol (Vitamin D3), 1 TAB PO DAILY, (Reported) Lorazepam (Ativan Tablet), 1 TAB PO BID, (Reported) Risperidone (Risperidone), 1 TAB PO QPM, (Reported) Temazepam (Temazepam), 1 CAP PO QPM, (Reported) Scheduled PRN Acetaminophen (Tylenol), 650 MG TN Q6HPRN PRN Miscellaneous Medications Ferrous Sulfate (Ferrous Sulfate), 325 MG GT, (Reported) Discharge Statement: "Patient was advised to return to the ER or call 911 if any headaches, dizziness, shortness of breath, chest pain, abdominal pain, bleeding, fevers, or worsening of medical condition. Patient was counseled about treatment plan, medications, possible side effects, patientverbalized understanding. All questions were answered to the best of my ability. This discharge took greater then 30 minutes in planning, reviewing documentation, counseling the patient, and discussing with other team members." ASSESSMENT ASSESSMENT Assessment UTI? dementia bipolar disorder with psychotic features knee fx s/p repair protein calorie malnutrition Date of Service: May 10, 2025 Billing Provider: CARLOS PAULA MD Common Visit Codes: 96727-TEY/OBS DISCH DAY >30min CARLOS PAULA MD May 10, 2025 12:25
[2025-05-11 01:00] VITALS: BP 98/62; PULSE 89; RESP 19; TEMP 97.5; O2SAT 95
[2025-05-11 05:00] VITALS: BP 117/75; PULSE 79; RESP 18; TEMP 98.1; O2SAT 95
[2025-05-11 08:00] VITALS: PULSE 72; PULSE 78; RESP 18
[2025-05-11 12:42] VITALS: BP 102/69; PULSE 76; RESP 16; TEMP 97.8; O2SAT 93
--- NOTE | 2025-05-11 16:33 | DVHPN2 ---
Assessment/Plan Assessment/Plan progress note 79 yo F with dementia, bipolar dz with psychotic features, knee fx s/p repair, sent from SNF for ALOC. upon discussion with family member, patient is baseline. concerning for UTI but not ruling out colonization seen during rounds, pending dc to [facility] with home health PT rehab. physical exam cachectic aox1 clear breath sounds s1 s2 rrr abdomen soft nontender no LE edema, L knee swelling, no erythema labs ekg imaging reviewed assessment and plan UTI? dementia bipolar disorder with psychotic features knee fx s/p repair protein calorie malnutrition empiric coverage urine culture PT eval may return to [facility] tomorrow after PT eval for rehab diet regular dvt ppx asa Plan discussed with: Daughter My Orders Orders - CARLOS PAULA MD Procedure Category Date Status Time * Missile Technician CONS 05/11/25 Transmitted Consult * Missile Technician CONS 05/11/25 Verified Consult Date of Service: May 11, 2025 Billing Provider: CARLOS PAULA MD Common Visit Codes: [id number] INP/OBS CARE(HIGH) CARLOS PAULA MD May 11, 2025 16:33
[2025-05-11 16:54] VITALS: BP 94/57; PULSE 73; RESP 16; TEMP 97.9; O2SAT 97
[2025-05-11 21:00] VITALS: BP 97/58; PULSE 71; RESP 18; TEMP 98.4; O2SAT 97
[2025-05-12 01:00] VITALS: BP 100/61; PULSE 70; RESP 18; TEMP 98.5; O2SAT 96
[2025-05-12 04:50] VITALS: BP 104/68; PULSE 71; RESP 18; TEMP 97.7; O2SAT 96
[2025-05-12] MEDS ORDERED: RISP1TAB33 PO (11:37)
[2025-05-12] MEDS ORDERED: ERGO1CAP23 PO (11:37)
[2025-05-12] MEDS ORDERED: LORA-1121 PO (14:12)
[2025-05-12] MEDS ORDERED: ACET-1304 PO (14:12)
[2025-05-12] MEDS ORDERED: SENN-105 PO (14:12)
[2025-05-12] MEDS ORDERED: HYDR-4902 PO (14:12)
[2025-05-12] MEDS ORDERED: FER325T PO (14:12)
--- NOTE | 2025-05-12 16:07 | DVHPN2 ---
Assessment/Plan Assessment/Plan progress note 79 yo F with dementia, bipolar dz with psychotic features, knee fx s/p repair, sent from SNF for ALOC. upon discussion with family member, patient is baseline. concerning for UTI but not ruling out colonization seen during rounds, dc today to [facility] with home pt rehab physical exam cachectic aox1 clear breath sounds s1 s2 rrr abdomen soft nontender no LE edema, L knee swelling, no erythema labs ekg imaging reviewed assessment and plan UTI? dementia bipolar disorder with psychotic features knee fx s/p repair protein calorie malnutrition empiric coverage urine culture PT eval [facility] after PT eval for rehab diet regular dvt ppx asa Plan discussed with: Other My Orders Orders - CARLOS PAULA MD Procedure Category Date Status Time * Lens Polisher CONS 05/11/25 Transmitted Consult Discharge DISCHARGE 05/12/25 Transmitted 12:09 Date of Service: May 12, 2025 Billing Provider: CARLOS PAULA MD Common Visit Codes: 68487-NOS/OBS DISCH DAY >30min CARLOS PAULA MD May 12, 2025 16:07
== END 2025-05-12 15:00 | disposition home health service (06) | DRG 690 ==
LOC: EDBD 16:07 → ER 16:07 → EDSEX 16:07 → TELE-EAST 23:11 → OVERFLOW 23:11 → TELE-CENTR 05-08 01:06 → TELE-EAST 05-08 21:25
PROVIDERS: ADMIT Student in an Organized Health Care Education/Training Program; ATTEND Student in an Organized Health Care Education/Training Program
DX: N39.0 Urinary tract infection, site not specified (principal); E46 Unspecified protein-calorie malnutrition; F03.93 Unspecified dementia, unspecified severity, with mood disturbance; Z68.1 Body mass index [BMI] 19.9 or less, adult; F31.9 Bipolar disorder, unspecified; F41.9 Anxiety disorder, unspecified; Z79.899 Other long term (current) drug therapy; Z88.8 Allergy status to other drugs, medicaments and biological substances
CPT/HCPCS: 36415; 71045; 80048; 80053; 81001; 82140; 82962; 83605; 85025; 87081; 87086; 96365; 97110; 97116; 97163; 97530; G0378; J1885

== ENCOUNTER 2025-08-28 16:08 | Inpatient (IN) | payer OTHER ==
[~2025-08-28] VITALS: Ht 147.3 cm; Wt 43.5 kg
[~2025-08-28 16:08] MED LIST changes: -ACE650RS PR; +ACET-1304 PO; -CHOL20007 PO; +ERGO1CAP23 PO; -FER300LQ GT; +FER325T PO; +HYDR-4902 PO; +RISP1TAB33 PO; -RISP1TAB63 PO; +SENN-105 PO; -TEMA30CA PO
--- NOTE | 2025-08-28 17:03 | ED.PDOC ---
History of Present Illness HPI Comments 79 y/o F is BIBA from SNF for c/c of left knee protrusion. Per EMS personnel report, staff at SNF called after reporting on patient having an screw placed in her left knee following recent surgery starting to advance and protrude outwards. No associated pain reported. Left knee surgery is stated to have been done at [facility] [place], earlier, this year. Patient has a history of dementia and is a poor historian. Chief Complaint: Lower Extremity Time Seen by MD: 16:50 Primary Care Provider: n/a Reviewed Notes: Nurses Notes, Court Assistant Notes, Medications, Allergies Allergies: Coded Allergies: Pseudoephedrine (Verified Allergy, Unknown, 11/15/24) Home Meds Active Scripts Acetaminophen (Tylenol Extra Strength) 500 Mg Tab, 500 MG PO Q6HP PRN for 30 Days, #120 TAB Prov:CARLOS PAULA MD 05/12/25 Senna (Senna) 8.6 Mg Tab, 8.6 MG PO DAILYP PRN for 30 Days, #30 TAB Prov:CARLOS PAULA MD 05/12/25 Ferrous Sulfate (FERROUS SULFATE) 325 Mg Tb, 1 TAB PO DAILY for 30 Days, #30 TAB 0 Refills Prov:CARLOS PAULA MD 05/12/25 Hydrocodone-Acetaminophen (Hydrocodone Bitartrate/AC 5-325 mg) 1 Tab Tab, 1 TAB PO DAILYPRN PRN for 14 Days, #14 TAB prn FOR pt Prov:CARLOS PAULA MD 05/12/25 Lorazepam (ATIVAN TABLET) 0.5 Mg Tb, 1 TAB PO Q12HP PRN for 30 Days, #60 TAB 0 Refills Prov:CARLOS PAULA MD 05/12/25 Ergocalciferol (VITAMIN D 60719 UNIT) 50,[address] [place], [address] UNIT PO QWEEKLY for 30 Days, #4 CAP Prov:CARLOS PAULA MD 05/12/25 Risperidone (Risperdal) 1 Mg Tab, 1.5 MG PO HS for 30 Days, #45 TAB Prov:CARLOS PAULA MD 05/12/25 Information Source: Emergency Med Personnel Mode of Arrival: EMS Severity: Moderate Timing: Hours Duration: Since onset Prehospital treatment: 12 Lead EKG, Optical Goods Worker Past Medical History PAST MEDICAL HISTORY: Anemia, Anxiety, Cancer, Dementia, Depression, Seizures Surgical History (Other): left knee surgery MANAGER SCIENCE History: Unknown Family History Family History: Reviewed,noncontributory to illness Social History Smoker: Non-Smoker Alcohol: Denies ETOH Use Drugs: Denies Drug Use Lives In: [facility] All Other Systems: Reviewed and Negative (Comprehensive systems review obtained and negative except for what is stated in the HPI.) Physical Exam General Appearance: No Apparent Distress, Normal HEENT: Normal ENT Inspection, Pharynx Normal, TMs Normal Neck: Full Range of Motion, Non-Tender, Normal, Normal Inspection Respiratory: Chest Non-Tender, Lungs Clear, No Accessory Muscle Use, No Respiratory Distress, Normal Breath Sounds Cardiovascular: No Edema, No JVD, No Murmur, No Gallop, Normal Peripheral Pulses, Regular Rate/Rhythm Breast Exam: Deferred Gastrointestinal: No Organomegaly, Non Tender, No Pulsatile Mass, Normal Bowel Sounds, Soft Genitalia: Deferred Pelvic: Deferred Rectal: Deferred Extremities: No calf tenderness, Normal capillary refill, Normal range of motion, No pedal edema, Tender (left knee ), Other (small pertusion to anterior medial side of left knee) Musculoskeletal : Location: Left Extremity Location: Knee Apperance: Normal, Tenderness Neurologic: Alert (A&Ox2), retirement officer II-XII nml as Tested, No Motor Deficits, Normal Affect, Normal Mood, No Sensory Deficits Cerebellar Function: Normal Reflexes: Normal Skin: Dry, Normal Color, Warm Lymphatic: No Adenopathy Was a procedure done? Was a procedure done?: No Differential Dx Considerations may include: post-op complication X-Ray, Labs, Meds, VS Vital Signs Date Time Temp Pulse Resp B/P (MAP) Pulse Ox O2 Delivery O2 Flow Rate FiO2 08/28/25 17:15 69 16 144/73 (96) 96 08/28/25 17:15 69 16 96 Room Air* 0 21 08/28/25 16:52 98.7 69 20 131/82 95 98.7 X-Ray, Labs, Meds, VS Comment Spoke with the test specialist on-call , he is able to review the film and advised that patient could be admitted for surgical removal of the hardware. Patient be given Ativan 0.5 and Risperdal as those are her p.o. meds for nighttime. Patient may require sitter as she has dementia and does get agitated at night Time of 1ST Reevaluation: 17:20 Reevaluation 1ST: Unchanged Patient Education/Counseling: Treatment Family Education/Counseling: Diagnosis, No Family Present SEPSIS Sepsis Screen Physician Orders L Knee 3v Xray (08/28/25 16:51) Lorazepam Tablet (Ativan Tablet) (08/28/25 19:00) Risperidone Tablet (Risperdal Tablet) (08/28/25 19:00) Ct L Knee Wo Contrast (08/28/25 18:52) Vital Signs Date Time Temp Pulse Resp B/P (MAP) Pulse Ox O2 Delivery O2 Flow Rate FiO2 08/28/25 17:15 69 16 144/73 (96) 96 08/28/25 17:15 69 16 96 Room Air* 0 21 08/28/25 16:52 98.7 69 20 131/82 95 98.7 Departure 1 Departure Time of Disposition: 18:58 Impression: Primary Impression: Surgical complication Qualified Codes: M96.89 - Other intraoperative and postprocedural complications and disorders of the musculoskeletal system Disposition: ADMITTED INPATIENT Condition: Fair Critical Care Note Critical Care Time?: No Stability Stability form required: No Heart Score Heart Score: Heart Score Response (Comments) Value History N/A 0 EKG N/A 0 Age N/A 0 Risk Factors N/A 0 Troponin N/A 0 Total 0 I personally scribed for KACI COLES ([email or web address]) on 08/28/25 at 17:02. Electronically submitted by Levar Altman ([email or web address]). KACI COLES Aug 28, 2025 17:02
[2025-08-28 17:15] VITALS: PULSE 69; RESP 16; O2SAT 96
--- NOTE | 2025-08-28 18:08 | DVH ---
CLINICAL INDICATION: KNEE PAIN TECHNIQUE: XY L KNEE 3V XRAY Comparison: XY L KNEE 2V XRAY on DOS: 08/05/25, XY L KNEE 4V XRAY on DOS: 04/22/25 FINDINGS/IMPRESSION: : Extensive hardware within the distal femur without definite evidence of complication. Moderate diffuse disuse osteopenia. There is no evidence of acute fracture or dislocation. Soft tissues are unremarkable.
[2025-08-28] MEDS: LORazepam 0.5 MG TAB PO ONE (19:00)
[2025-08-28] MEDS: risperiDONE 1 MG TAB PO ONE (19:00)
[2025-08-28] MEDS ORDERED: ONDANSETRON HCL 4 MG/2 ML VIAL IV PRN (19:30)
[2025-08-28] MEDS ORDERED: HYDROcodone-ACET 5/325MG TAB PO PRN (19:30)
[2025-08-28] MEDS ORDERED: DOCUSATE SOD 100 MG CAP PO PRN (19:30)
[2025-08-28] MEDS ORDERED: ACETAMINOPHEN 325 MG TAB PO PRN (19:30)
[2025-08-28 19:45] VITALS: O2SAT 98
[2025-08-28 19:55] LABS: Hematocrit 45.7 % (36.0-46.0); Hemoglobin 15.5 g/dL (12.2-16.2); Mean Corpuscular Hemoglobin 30.0 pg (28.0-32.0); Mean Corpuscular Volume 88.3 fL (80.0-100.0); Nucleated Red Blood Cells % 0.0 %
--- NOTE | 2025-08-28 20:12 | DVHHP2 ---
History of Present Illness Reason for Visit: Surgical complication History of Present Illness The patient is a 79-year-old female with past medical history of anxiety, cancer, anemia, dementia, depression, and seizures who presented to [facility] ED for evaluation of left knee screw protrusion from previous surgery. As reported, patient is currently residing at senior living facility, staff member noticed screw penetration outwards that was placed in her left knee following recent knee surgery done at [facility] [place] this year. Patient was seen and evaluated in the ED, laboratory data shows WBC 8.5, platelets 310, sodium 142, potassium 4.0, BUN 9, creatinine 0.57, glucose 99, calcium 9.9, blood pressure 144/73, heart rate 68, temperature 98.7 F, O2 saturation 96% on room air. Left knee CT revealing medial and lateral distal femoral fixation plates and screws across the bilateral femoral condyles; the inferior femoral condyles transverse screw head is shallow to the skin surface medially, however, does not appear to be backed out from the associated anchoring bone; no significant joint effusion or organized drainable fluid collection to suggest abscess formation. Please see medication orders section in the computer. On my assessment, patient remains altered, denied chest pain, no headache, diaphoresis, dizziness, shortness of breaths, no diarrhea, nausea, vomiting, fever, no chills. Patient was admitted for further evaluation and medical management. Past Medical History Anemia, Anxiety, Cancer, Dementia, Depression, Seizures Past Surgical History Left knee surgery Family History Reviewed, noncontributory to the management of this case. Past Social History The patient lives at senior living, denies smoking, alcohol or illicit drugs abuse. Review of Systems Constitutional: Yes: Weakness; No: Fever, Chills, Sweats, Malaise, Other Eyes: No: Pain, Vision change, Conjunctivae inflammation, Eyelid inflammation, Other, Redness ENT: No: Ear pain, Ear discharge, Nose pain, Nose discharge, Nose congestion, Mouth pain, Mouth swelling, Throat pain, Throat swelling, Other Respiratory: No: Cough, Dry, Shortness of breath, SOB with excertion, Wheezing, Hemoptysis, Pleuritic Pain, Sputum, Wheezing, Other Cardiovascular: No: Chest Pain, Palpitations, Orthopnea, Paroxysmal Noc. Dyspnea, Edema, Lt Headedness, Other Gastrointestinal: No: Nausea, Vomiting, Abdominal Pain, Diarrhea, Constipation, Melena, Hematochezia, Other Genitourinary: No Dysuria, No Frequency, No Incontinence, No Hematuria, No Retention, No Other Musculoskeletal: other (Left knee screw protrusion); No: neck pain, shoulder pain, arm pain, back pain, hand pain, leg pain, foot pain Skin: No: Rash, Lesions, Jaundice, Bruising, Other Neurological: Confusion; No: Weakness, Numbness, Incoordination, Change in speech, Seizures, Other Allergies: Coded Allergies: Pseudoephedrine (Verified Allergy, Unknown, 11/15/24) Medications Current Medications Medications Dose Ordered Sig/Josafat Route Start Time Stop Time Status Last Admin Dose Admin Risperidone 1 mg DAILY PO 08/29/25 10:00 Lorazepam 0.5 mg Q8HP PRN IV 08/28/25 19:30 Sodium Chloride 10 ml Q8HR IV 08/28/25 22:00 Acetaminophen/ Hydrocodone Bitart 1 tab Q4HP PRN PO 08/28/25 19:30 Ondansetron HCl 4 mg Q4HP PRN IV 08/28/25 19:30 Docusate Sodium 100 mg BIDPRN PRN PO 08/28/25 19:30 Enoxaparin Sodium 30 mg DAILY SC 08/29/25 10:00 UNV Acetaminophen 650 mg Q6HP PRN PO 08/28/25 19:30 Exam Vital Signs Vital Signs Date Time Temp Pulse Resp B/P (MAP) Pulse Ox O2 Delivery O2 Flow Rate FiO2 08/28/25 17:15 69 16 144/73 (96) 96 08/28/25 17:15 Room Air* 0 21 08/28/25 16:52 98.7 98.7 General Appearance: Alert, Oriented X3, Cooperative, No acute distress HEENT: Atraumatic, PERRLA, EOMI, Mucous membr. moist/pink Respiratory: Normal air movement Cardiovascular: Regular rate, Normal S1, Normal S2, No murmurs Abdominal: Normal bowel sounds, Soft, No tenderness, No hepatospenomegaly, No masses Extremities: No clubbing, No cyanosis, No edema, Normal pulses, Other (Left knee tenderness) Skin: No rashes, No significant lesion Neuro: Normal speech, Normal tone, Sensation intact, Cranial nerves 3-12 NL, Reflexes 2+, Other (Unsteady gait) Psych/Mental Status: Mood NL, Other (Altered mental status) Labs/Xrays Labs Test 08/28/25 19:42 Range/Units White Blood Count 8.5 4.4-10.8 10^3/uL Red Blood Count 5.17 4.0-5.20 10^6/uL Hemoglobin 15.5 12.2-16.2 g/dL Hematocrit 45.7 36.0-46.0 % Mean Corpuscular Volume 88.3 80.0-100.0 fL Mean Corpuscular Hemoglobin 30.0 28.0-32.0 pg Mean Corpuscular Hemoglobin Concent 34.0 32.0-36.0 g/dL Red Cell Distribution Width 14.4 H 11.8-14.3 % Platelet Count 310 140-450 10^3/uL Mean Platelet Volume 7.1 6.9-10.8 fL Neutrophils (%) (Auto) 72.0 37.0-80.0 % Lymphocytes (%) (Auto) 18.8 10.0-50.0 % Monocytes (%) (Auto) 7.5 0.0-12.0 % Eosinophils (%) (Auto) 0.9 0.0-7.0 % Basophils (%) (Auto) 0.8 0.0-2.0 % Neutrophils # (Auto) 6.1 1.6-8.6 10 ^3/uL Lymphocytes # (Auto) 1.6 0.4-5.4 10 ^3/uL Monocytes # (Auto) 0.6 0-1.3 10 ^3/uL Eosinophils # (Auto) 0.1 0-0.8 10 ^3/uL Basophils # (Auto) 0.1 0-0.2 10 ^3/uL Nucleated Red Blood Cells 0.0 % PATIENT: ALBIN WASHINGTON ACCT: [id number] UNIT: [id number] : 1945 LOC: OVERFLOW ROOM / BED: [address] [place] [address] / A AGE / SEX: 79 / F ADM STATUS: ADM IN SERVICE 51 ORDERING PHYSICIAN: KACI COLES PROCEDURE(s): LKNCT - CT L KNEE WO CONTRAST REASON: post surgical complications ORDER NUMBER(s): [id number], ACCESSION NUMBER(s): [id number] INDICATION: post surgical complications COMPARISON: XY L KNEE 3V XRAY on DOS: 08/28/25, XY L KNEE 2V XRAY on DOS: 08/05/25, CT CT L FEMUR WO CONTRAST on DOS: 04/23/25, XY L KNEE 4V XRAY on DOS: 04/22/25 TECHNIQUE: CT of the left knee was performed without contrast. Volume transverse images were obtained and reconstructed in multiple planes using bone and soft tissue algorithms. Radiation Dose Information: CT Dose: CTDI volume is 7.75 mGy. Dose-length product is 240.02 mGy*cm FINDINGS: Medial and lateral distal femoral fixation plates and screws across the bilateral femoral condyles. The inferior femoral condylar transverse screw head is shallow to the skin surface medially, however, does not appear to be backed out from the associated anchoring bone. No significant joint effusion or organized drainable fluid collection to suggest abscess formation. Atherosclerotic vascular calcifications are identified. The s oft tissues are otherwise normal in appearance. IMPRESSION: 1. Medial and lateral distal femoral fixation plates and screws across the bilateral femoral condyles. 2. The inferior femoral condylar transverse screw head is shallow to the skin surface medially, however, does not appear to be backed out from the associated anchoring bone. 3. No significant joint effusion or organized drainable fluid collection to suggest abscess formation. ORDERING PHYSICIAN: KACI COLES EDITORIAL MANAGER PROCEDURE(s): LKNE3 - L KNEE 3V XRAY REASON: KNEE PAIN ORDER NUMBER(s): [id number], ACCESSION NUMBER(s): [id number] CLINICAL INDICATION: KNEE PAIN TECHNIQUE: XY L KNEE 3V XRAY Comparison: XY L KNEE 2V XRAY on DOS: 08/05/25, XY L KNEE 4V XRAY on DOS: 04/22/25 FINDINGS/IMPRESSION: : Extensive hardware within the distal femur without definite evidence of comp lication. Moderate diffuse disuse osteopenia. There is no evidence of acute fracture or dislocation. Soft tissues are unremarkable. SEPSIS Sepsis Screen Date sepsis recognized/suspect: Aug 28, 2025 Time Sepsis recognized/suspect: 1719 Recent Procedure: No On Antibiotic Therapy: No Respiratory Rate >20: No Heart Rate >90: No Temp<36 C (96.8 F) or >38.3 C: No SBP <90 or MAP <65 mmHG: No New Acute Mental Status Change: No Is the patient on CPAP, BIPAP,: No Physician Orders L Knee 3v Xray (08/28/25 16:51) Ct L Knee Wo Contrast (08/28/25 18:52) Risperidone Tablet (Risperdal Tablet) (08/29/25 10:00) Lorazepam 2mg/Ml Inj (Ativan Inj) (08/28/25 19:30) Comprehensive Metabolic Panel (08/28/25 19:27) Allergies (08/28/25 19:) Code Status (08/28/25 19:) Sodium Chloride Lock (Saline Lock Ns) (08/28/25 22:00) Oxygen Per Hour (08/28/25:) Hydrocodone-Acet 5/325mg Tab (Dalton 5/32 (08/28/25 19:30) Ondansetron Hcl (Zofran) (08/28/25 19:30) Docusate Sodium Capsule (Colace Capsule) (08/28/25 19:30) Fall Risk Precautions In Place QSHIFT (08/28/25 19:27) Complete Blood Count (08/29/25 04:00) Comprehensive Metabolic Panel (08/29/25 04:00) Cardiac Diet-2gna,Lofat,Lochol (08/29/25 Breakfast) Condition: Serious (08/28/25 19:27) Enoxaparin Sodium (Lovenox) (08/29/25 10:00) Acetaminophen Tablet (Tylenol Tablet) (08/28/25 19:30) Maintain Bed Rest (08/28/25:27) Sequential Compression Device (08/28/25 ) Vital Signs Date Time Temp Pulse Resp B/P (MAP) Pulse Ox O2 Delivery O2 Flow Rate FiO2 08/28/25 17:15 69 16 144/73 (96) 96 08/28/25 17:15 69 16 96 Room Air* 0 21 08/28/25 16:52 98.7 69 20 131/82 95 98.7 Laboratory Tests Test 08/28/25 19:42 White Blood Count 8.5 10^3/uL (4.4-10.8) Medications Medications Dose Ordered Sig/Josafat Route Start Time Stop Time Status Last Admin Dose Admin Lorazepam 0.5 mg ONCE ONCE PO 08/28/25 19:00 08/28/25 19:01 DC 08/28/25 19:00 0.5 MG Risperidone 1 mg ONCE ONCE PO 08/28/25 19:00 08/28/25 19:01 DC 08/28/25 19:00 1 MG Assessment/Plan Assessment/Plan Surgical complication Altered mental status Generalized weakness Other intraoperative and postprocedural complications and disorders of the musculoskeletal system Plan 1. Admit to telemetry unit 2. Breathing treatment 3. Pain control management 4. Management of fluids and electrolytes 5. Consultation for hospitalist 6. Diagnostic tests left knee CT 7. DVT prophylaxis on Lovenox 8. Repeat labs CBC, CMP in a.m. 9. Continue with current medical management 10. Treatment plan discussed with patient and RN. Patient verbalized understanding. Plan discussed with: Patient, Other (RN) My Orders Orders - EAMON CHANG DNP Procedure Category Date Status Time Risperidone Tablet PHA 08/29/25 In Process (Risperdal Tablet) 10:00 Lorazepam 2mg/Ml Inj PHA 08/28/25 In Process (Ativan Inj) 19:30 Comprehensive LAB 08/28/25 In Process Metabolic Panel 19:27 Allergies ANAHI 08/28/25 In Process 19:27 Code Status CODE 08/28/25 Transmitted 19:27 Sodium Chloride Lock PHA 08/28/25 In Process (Saline Lock Ns) 22:00 Oxygen Per Hour RT 08/28/25 Transmitted 19:27 Hydrocodone-Acet PHA 08/28/25 In Process 5/325mg Tab (Dalton 19:30 Ondansetron Hcl PHA 08/28/25 In Process (Zofran) 19:30 Docusate Sodium PHA 08/28/25 In Process Capsule (Colace 19:30 Fall Risk Precautions ANAHI 08/28/[address] 19:27 Complete Blood Count LAB 08/29/25 Verified 04:00 Comprehensive LAB 08/29/25 Verified Metabolic Panel 04:00 Cardiac DIET 08/29/25 Transmitted Diet-2gna,Lofat,Lochol Breakfast Condition: Serious ANAHI 08/28/25 In Process 19:27 Enoxaparin Sodium PHA 08/29/25 Logged (Lovenox) 10:00 Acetaminophen Tablet PHA 08/28/25 In Process (Tylenol Tablet) 19:30 Maintain Bed Rest ANAHI 08/28/25 In Process 19:27 Sequential ANAHI 08/28/25 In Process Compression Device Problem List: (1) Surgical complication (2) Altered mental status (3) Generalized weakness (4) Other intraoperative and postprocedural complications and disorders of the musculoskeletal system Date of Service: Aug 28, 2025 Billing Provider: EAMON CHANG DNP Common Visit Codes: [id number] INP/OBS CARE (HIGH) EAMON CHANG DNP Aug 28, 2025 20:12
[2025-08-28 20:15] LABS: Alanine Aminotransferase 18 U/L (7-40); Albumin 4.4 g/dL (3.2-4.8); Alkaline Phosphatase 110 U/L (46-116); Anion Gap 14 (5-15); BUN/Creatinine Ratio 15.8 (10.0-20.0); Bilirubin, Total 0.6 mg/dL (0.2-1.0); Blood Urea Nitrogen 9 mg/dL (9-23); Calcium 9.9 mg/dL (8.7-10.4); Carbon Dioxide 22 mmol/L (20-31); Chloride 106 mmol/L (98-107); Glucose 99 mg/dL (74-106); Potassium 4.0 mmol/L (3.5-5.1); Sodium 142 mmol/L (136-145); Total Protein 7.5 g/dL (5.7-8.2)
[2025-08-28] MEDS ORDERED: MORPHINE SULFATE INJ 2 MG/ml SYRG IV PRN (20:15)
[2025-08-28] MEDS ORDERED: NITROGLYCERIN 0.4 MG SL TAB SL PRN (20:15)
--- NOTE | 2025-08-28 20:17 | DVH ---
INDICATION: post surgical complications COMPARISON: XY L KNEE 3V XRAY on DOS: 08/28/25, XY L KNEE 2V XRAY on DOS: 08/05/25, CT CT L FEMUR WO C ONTRAST on DOS: 04/23/25, XY L KNEE 4V XRAY on DOS: 04/22/25 TECHNIQUE: CT of the left knee was performed without contrast. Volume transverse images were obtained and reconstructed in multiple planes using bone and soft tissue algorithms. Radiation Dose Information: CT Dose: CTDI volume is 7.75 mGy. Dose-length product is 240.02 mGy*cm FINDINGS: Medial and lateral distal femoral fixation plates and screws across the bilateral femoral condyles. T he inferior femoral condylar transverse screw head is shallow to the skin surface medially, however, does not appear to be backed out from the associated anchoring bone. No significant joint effusion or organized drainable fluid collection to suggest abscess formation. A therosclerotic vascular calcifications are identified. The soft tissues are otherwise normal in appe arance. IMPRESSION: 1. Medial and lateral distal femoral fixation plates and screws across the bilateral femoral condyles . 2. The inferior femoral condylar transverse screw head is shallow to the skin surface medially, howev er, does not appear to be backed out from the associated anchoring bone. 3. No significant joint effusion or organized drainable fluid collection to suggest abscess formation . All CT scans at this medical facility are performed using dose modulation techniques as appropriate t o a performed exam including the following: Automated exposure control was utilized; adjustment of th e MA and/or KV according to patient size; and use of iterative reconstruction technique.
[2025-08-28 22:08] VITALS: BP 126/88; PULSE 48; PULSE 68; RESP 16; RESP 17; TEMP 97; O2SAT 93; O2SAT 95
[2025-08-29] VITALS (9 sets, daily range): BP systolic 109–161; BP diastolic 73–93; PULSE 72–91; RESP 16–18; TEMP 97.1–98.4; O2SAT 92–95
[2025-08-29] MEDS: SODIUM CHLOR 0.9% PF (SALINE LOCK) 10ML VIAL/SYR IV SCH (04:39)
[2025-08-29 05:48] LABS: Hematocrit 41.5 % (36.0-46.0); Hemoglobin 14.4 g/dL (12.2-16.2); Mean Corpuscular Hemoglobin 30.1 pg (28.0-32.0); Mean Corpuscular Volume 86.8 fL (80.0-100.0); Nucleated Red Blood Cells % 0.1 %
[2025-08-29 06:07] LABS: Alanine Aminotransferase 16 U/L (7-40); Albumin 3.9 g/dL (3.2-4.8); Alkaline Phosphatase 100 U/L (46-116); Anion Gap 11 (5-15); BUN/Creatinine Ratio 25.6 (10.0-20.0); Blood Urea Nitrogen 10 mg/dL (9-23); Calcium 9.4 mg/dL (8.7-10.4); Carbon Dioxide 23 mmol/L (20-31); Glucose 89 mg/dL (74-106); Potassium 3.5 mmol/L (3.5-5.1); Sodium 142 mmol/L (136-145); Total Protein 6.3 g/dL (5.7-8.2)
[2025-08-29 06:08] LABS: Bilirubin, Total 0.6 mg/dL (0.2-1.0)
[2025-08-29 06:09] LABS: Chloride 108 mmol/L (98-107)
[2025-08-29] MEDS: risperiDONE 1 MG TAB PO SCH (10:01)
[2025-08-29] MEDS: ENOXAPARIN SOD 30 MG/0.3 ML SYRINGE SC SCH (10:02)
--- NOTE | 2025-08-29 10:33 | DVH ---
CLINICAL HISTORY: htn TECHNIQUE: 2 view of the chest was obtained. WID: COMPARISON: XY CHEST XRAY 1 VIEW on DOS: 05/07/25, XY CHEST XRAY 1 VIEW on DOS: 04/22/25, XY CHEST LIZETH BLE on DOS: 11/15/24, XY CHEST PORTABLE on DOS: 04/24/23, XY CHEST PORTABLE on DOS: 03/24/23 FINDINGS: Patient is severely rotated limiting evaluation. Unchanged oblong hyperdensity over the superior medi astinum when compared to prior. No pulmonary opacities. Imaged upper abdomen is unremarkable. IMPRESSION: NO ACUTE CARDIOPULMONARY PROCESS.
[2025-08-29 12:30] LABS: INR 1.04 (0.9-1.15); Prothrombin Time 11.0 sec (9.3-11.8)
--- NOTE | 2025-08-29 13:38 | DVHPN2 ---
Reviewed: Care Plan, H&P, Labs, Medications, Previous Orders, Radiology Changes from previous H/P or p: No Changes Eyes: No Pain, No Vision change, No Conjunctivae inflammation, No Eyelid inflammation, No Other, No Redness ENT: No Ear pain, No Ear discharge, No Nose pain, No Nose discharge, No Nose congestion, No Mouth pain, No Mouth swelling, No Throat pain, No Throat swelling, No Other Cardiovascular: No Chest Pain, No Palpitations, No Orthopnea, No Paroxysmal Noc. Dyspnea, No Edema, No Lt Headedness, No Other Respiratory: No Cough, No Dry, No Shortness of breath, No SOB with excertion, No Wheezing, No Hemoptysis, No Pleuritic Pain, No Sputum, No Other Gastrointestinal: No Nausea, No Vomiting, No Abdominal Pain, No Diarrhea, No Constipation, No Melena, No Hematochezia, No Other Genitourinary: No Dysuria, No Frequency, No Incontinence, No Hematuria, No Retention, No Other Musculoskeletal: other (Left knee screw protrusion); No neck pain, No shoulder pain, No arm pain, No back pain, No hand pain, No leg pain, No foot pain Skin: No Rash, No Lesions, No Jaundice, No Bruising, No Other Objective Vitals Vital Signs Date Time Temp Pulse Resp B/P (MAP) Pulse Ox O2 Delivery O2 Flow Rate FiO2 08/29/25 12:42 98.1 82 17 109/73 (85) 92 98.1 08/29/25 08:25 Room Air* 0 21 Intake/Output Intake and Output 08/29/25 07:00 Intake Total 0 ml Balance 0 ml Intake Oral 0 ml # Voids 3 # Bowel Movements 2 Medications Current Medications Medications Dose Ordered Sig/Josafat Route Start Time Stop Time Status Last Admin Dose Admin Risperidone 1 mg DAILY PO 08/29/25 10:00 08/29/25 10:01 1 MG Lorazepam 0.5 mg Q8HP PRN IV 08/28/25 19:30 Sodium Chloride 10 ml Q8HR IV 08/28/25 22:00 08/29/25 05:45 10 ML Acetaminophen/ Hydrocodone Bitart 1 tab Q4HP PRN PO 08/28/25 19:30 Ondansetron HCl 4 mg Q4HP PRN IV 08/28/25 19:30 Docusate Sodium 100 mg BIDPRN PRN PO 08/28/25 19:30 Enoxaparin Sodium 30 mg DAILY SC 08/29/25 10:00 08/29/25 10:02 30 MG Acetaminophen 650 mg Q6HP PRN PO 08/28/25 19:30 Nitroglycerin 0.4 mg Q5MINP PRN SL 08/28/25 20:15 Morphine Sulfate 2 mg Q30M PRN IV 08/28/25 20:15 Laboratory Results Laboratory Tests 08/29/25 05:11 Chemistry Test 08/28/25 19:42 08/29/25 05:11 Albumin 4.4 g/dL (3.2-4.8) 3.9 g/dL (3.2-4.8) Calcium Level 9.9 mg/dL (8.7-10.4) 9.4 mg/dL (8.7-10.4) Total Protein 7.5 g/dL (5.7-8.2) 6.3 g/dL (5.7-8.2) Coagulation Test 08/29/25 11:40 Prothrombin Time 11.0 sec (9.3-11.8) Prothrombin Time INR 1.04 (0.9-1.15) LFT Test 08/28/25 19:42 08/29/25 05:11 Alanine Aminotransferase (ALT) 18 U/L (7-40) 16 U/L (7-40) Alkaline Phosphatase 110 U/L (46-116) 100 U/L (46-116) Aspartate Amino Transferase (AST) 21 U/L (13-40) 13 U/L (13-40) Total Bilirubin 0.6 mg/dL (0.2-1.0) 0.6 mg/dL (0.2-1.0) Labs and/or images reviewed: Labs reviewed by me, Image(s) reviewed by me Assessment/Plan Assessment/Plan Surgical complication hardware protruding from the left knee: Left knee x-ray and CT does not show protrusion of the hard rodrigez, ortho consult Altered mental status Generalized weakness Other intraoperative and postprocedural complications and disorders of the musculoskeletal system Anemia Anxiety Cancer Dementia Depression History of seizures Patient came from [facility] Time spent 70 minutes Advanced care planning time 20 minutes Patient is full code Plan discussed with: Patient Date of Service: Aug 29, 2025 Billing Provider: JOON HAMPTON MD Common Visit Codes: [id number] INP/OBS CARE(HIGH) JOON HAMPTON MD Aug 29, 2025 13:38
[2025-08-29] MEDS ORDERED: ERGO1CAP23 PO (16:49)
[2025-08-29] MEDS ORDERED: CHOL20007 PO (16:49)
[2025-08-29] MEDS ORDERED: ACET-1304 PO (16:49)
[2025-08-29] MEDS ORDERED: LORA-1121 PO (17:34)
[2025-08-29] MEDS ORDERED: FERR325T24 PO (17:34)
[2025-08-29] MEDS ORDERED: SENN-58 PO (17:34)
[2025-08-29] MEDS ORDERED: RISP1TAB63 PO (17:34)
[2025-08-30] VITALS (9 sets, daily range): BP systolic 106–137; BP diastolic 64–91; PULSE 63–100; RESP 14–19; TEMP 97.6–98.5; O2SAT 93–98
--- NOTE | 2025-08-30 08:26 | DVHINCON2 ---
Date of service: Aug 29, 2025 Reason for Consultation left knee hardware pain History of Present Illness 79 yo F with hx of dementia/ ORIF Right distal femur fracture at [facility] [place]. Patient does not really ambulate at baseline per POA/family. Noticed protrusion of hardware over the last few weeks which causes pain with dressing patient Past Medical History anxiety, cancer, anemia, dementia, depression, and seizures Past Surgical History Left knee ORIF Family History: Cancer of extrahepatic bile ducts G8 FATHER (COMMON BILE DUCT CANCER), , Age: 63 Cerebrovascular accident (CVA) G8 MOTHER (NONE KNOWN), , Age: 72 Allergies: Coded Allergies: Pseudoephedrine (Verified Allergy, Unknown, 11/15/24) Home Meds Reported Medications Senna (Senokot) 8.6 Mg Tab, 8.6 MG PO DAILY PRN for FOR CONSTIPATION, TAB 08/29/25 Risperidone (Risperidone) 1 Mg Tab, 1.5 TAB PO HS, #30 TAB 1 Refill 08/29/25 Lorazepam (ATIVAN TABLET) 0.5 Mg Tb, 1 TAB PO Q12HP PRN for ANXIETY, #60 TAB 08/29/25 Ferrous Sulfate (Ferrous Sulfate) 325 Mg Tab, 325 MG PO DAILY for 30 Days, MG 08/29/25 Ergocalciferol (VITAMIN D 16855 UNIT) 50,000 [place], [address] UNIT PO QWEEKLY, CAP 08/29/25 Acetaminophen (Tylenol Extra Strength) 500 Mg Tab, 500 MG PO Q6HP PRN for PAIN SCALE 1 THRU 6, TAB 08/29/25 Current Medications Current Medications Medications (Trade) Dose Ordered Sig/Josafat Route PRN Reason Start Time Stop Time Status Last Admin Risperidone (RisperDAL TABLET) 1 mg DAILY PO 08/29/25 10:00 08/29/25 10:01 Enoxaparin Sodium (Lovenox) 30 mg DAILY SC 08/29/25 10:00 08/29/25 10:02 Review of Systems 10 point ROS is neg except per HPI Vital Signs Vital Signs Date Time Temp Pulse Resp B/P (MAP) Pulse Ox O2 Delivery O2 Flow Rate FiO2 08/30/25 05:00 98.4 81 19 122/69 (86) 94 98.4 08/29/25 20:00 Room Air* 0 21 Physical Exam NAD LLE: +prominent screw noted at skin with tenting Passive ROM 0-95 unable to assess motor/sens exam due to dementia Labs/Diagnostic Data Labs Test 08/29/25 11:40 08/29/25 05:11 Range/Units Prothrombin Time 11.0 9.3-11.8 sec Prothrombin Time INR 1.04 0.9-1.15 White Blood Count 7.0 4.4-10.8 10^3/uL Red Blood Count 4.78 4.0-5.20 10^6/uL Hemoglobin 14.4 12.2-16.2 g/dL Hematocrit 41.5 36.0-46.0 % Mean Corpuscular Volume 86.8 80.0-100.0 fL Mean Corpuscular Hemoglobin 30.1 28.0-32.0 pg Mean Corpuscular Hemoglobin Concent 34.6 32.0-36.0 g/dL Red Cell Distribution Width 14.5 H 11.8-14.3 % Platelet Count 285 140-450 10^3/uL Mean Platelet Volume 7.3 6.9-10.8 fL Neutrophils (%) (Auto) 74.0 37.0-80.0 % Lymphocytes (%) (Auto) 14.0 10.0-50.0 % Monocytes (%) (Auto) 9.9 0.0-12.0 % Eosinophils (%) (Auto) 1.5 0.0-7.0 % Basophils (%) (Auto) 0.6 0.0-2.0 % Neutrophils # (Auto) 5.1 1.6-8.6 10 ^3/uL Lymphocytes # (Auto) 1.0 0.4-5.4 10 ^3/uL Monocytes # (Auto) 0.7 0-1.3 10 ^3/uL Eosinophils # (Auto) 0.1 0-0.8 10 ^3/uL Basophils # (Auto) 0 0-0.2 10 ^3/uL Nucleated Red Blood Cells 0.1 % Sodium Level 142 136-145 mmol/L Potassium Level 3.5 3.5-5.1 mmol/L Chloride Level 108 H 98-107 mmol/L Carbon Dioxide Level 23 20-31 mmol/L Anion Gap 11 5-15 Blood Urea Nitrogen 10 9-23 mg/dL Creatinine 0.39 #L 0.550-1.02 mg/dL Glomerular Filtration Rate Calc 101 >90 mL/min BUN/Creatinine Ratio 25.6 H 10.0-20.0 Serum Glucose 89 74-106 mg/dL Calcium Level 9.4 8.7-10.4 mg/dL Total Bilirubin 0.6 0.2-1.0 mg/dL Aspartate Amino Transferase (AST) 13 13-40 U/L Alanine Aminotransferase (ALT) 16 7-40 U/L Alkaline Phosphatase 100 46-116 U/L Total Protein 6.3 5.7-8.2 g/dL Albumin 3.9 3.2-4.8 g/dL Plan/Recommendation 79 yo F with hx of ORIF Left distal femur ORIF at [facility] 03/20[place] with left screw prominence 1. Plan for Left distal femur screw removal/ Iliotibial band debridement 2. Risks benefits options and alternatives discussed in depth with patient POA. She understands the risks include but not excluisve to bleeding infection nerve injury hardware failure need for further surgery blood clots cardiac and pulmonary complications amputation and . Family only wants the one screw removed. They understand screw may not come out and they are okay with this. They wish to proceed with surgery 3. NPO/IVF 4. pain control Plan discussed with: Patient, Other (POA) RADHA PHAM MD Aug 30, 2025 08:26
--- NOTE | 2025-08-30 09:40 | DVHPN2 ---
Reviewed: Care Plan, H&P, Labs, Medications, Previous Orders, Radiology Changes from previous H/P or p: No Changes Eyes: No Pain, No Vision change, No Conjunctivae inflammation, No Eyelid inflammation, No Other, No Redness ENT: No Ear pain, No Ear discharge, No Nose pain, No Nose discharge, No Nose congestion, No Mouth pain, No Mouth swelling, No Throat pain, No Throat swelling, No Other Cardiovascular: No Chest Pain, No Palpitations, No Orthopnea, No Paroxysmal Noc. Dyspnea, No Edema, No Lt Headedness, No Other Respiratory: No Cough, No Dry, No Shortness of breath, No SOB with excertion, No Wheezing, No Hemoptysis, No Pleuritic Pain, No Sputum, No Other Gastrointestinal: No Nausea, No Vomiting, No Abdominal Pain, No Diarrhea, No Constipation, No Melena, No Hematochezia, No Other Genitourinary: No Dysuria, No Frequency, No Incontinence, No Hematuria, No Retention, No Other Musculoskeletal: other (Left knee screw protrusion); No neck pain, No shoulder pain, No arm pain, No back pain, No hand pain, No leg pain, No foot pain Skin: No Rash, No Lesions, No Jaundice, No Bruising, No Other Objective Vitals Vital Signs Date Time Temp Pulse Resp B/P (MAP) Pulse Ox O2 Delivery O2 Flow Rate FiO2 08/30/25 09:00 98.2 78 16 116/81 (93) 93 98.2 08/29/25 20:00 Room Air* 0 21 Intake/Output Intake and Output 08/30/25 07:00 Intake Total 460 ml Balance 460 ml Intake Oral 460 ml # Voids 3 # Bowel Movements 4 Medications Current Medications Medications Dose Ordered Sig/Josafat Route Start Time Stop Time Status Last Admin Dose Admin Risperidone 1 mg DAILY PO 08/29/25 10:00 08/29/25 10:01 1 MG Lorazepam 0.5 mg Q8HP PRN IV 08/28/25 19:30 Sodium Chloride 10 ml Q8HR IV 08/28/25 22:00 08/30/25 05:19 10 ML Acetaminophen/ Hydrocodone Bitart 1 tab Q4HP PRN PO 08/28/25 19:30 Ondansetron HCl 4 mg Q4HP PRN IV 08/28/25 19:30 Docusate Sodium 100 mg BIDPRN PRN PO 08/28/25 19:30 Enoxaparin Sodium 30 mg DAILY SC 08/29/25 10:00 08/29/25 10:02 30 MG Acetaminophen 650 mg Q6HP PRN PO 08/28/25 19:30 Nitroglycerin 0.4 mg Q5MINP PRN SL 08/28/25 20:15 Morphine Sulfate 2 mg Q30M PRN IV 08/28/25 20:15 Laboratory Results Laboratory Tests 08/29/25 05:11 Coagulation Test 08/29/25 11:40 Prothrombin Time 11.0 sec (9.3-11.8) Prothrombin Time INR 1.04 (0.9-1.15) Labs and/or images reviewed: Labs reviewed by me, Image(s) reviewed by me Assessment/Plan Assessment/Plan Surgical complication hardware protruding from the left knee: Orthopedic Dr Almazan planning for left distal femur screw removal and iliotibial band debridement Altered mental status History of ORIF left distal femur [facility] 03/2025 Generalized weakness Other intraoperative and postprocedural complications and disorders of the musculoskeletal system Anemia Anxiety Cancer Dementia Depression History of seizures Patient came from [facility] Time spent 50 minutes Advanced care planning time 20 minutes Patient is full code Plan discussed with: Patient My Orders Orders - JOON HAMPTON MD Procedure Category Date Status Time *Consult Dr. Mayorga CONS 08/29/25 Transmitted Norah 13:38 DNR ANAHI 08/29/25 In Process 14:48 Code Status CODE 08/29/25 Transmitted 14:48 Date of Service: Aug 30, 2025 Billing Provider: JOON HAMPTON MD Common Visit Codes: [id number] INP/OBS CARE(HIGH) JOON HAMPTON MD Aug 30, 2025 09:40
--- NOTE | 2025-08-30 10:00 | ECG ---
[facility] Test Date: 2025-08-30 Test Time: 01:18:04 Pat Name: ALBIN WASHINGTON Department: Respiratoy Room: 0248T B Gender: F Individual Pension Consultant: RENZO : 1945 Requested By: EAMON CHANG Order Number: [id number] Reading MD: Stiven Menjivar Measurements Intervals [place] Rate: 81 P: 25 MA: 155 QRS: 41 QRSD: 94 T: 70 QT: 523 QTc: 608 Interpretive Statements Sinus rhythm Abnormal R-wave progression, early transition Borderline repolarization abnormality Prolonged QT interval Baseline wander in lead(s) I,III,aVL Electronically Signed On 08-31-2025 15:29:37 PDT by Stiven Menjivar Please click the below link to view image of tracing.
--- NOTE | 2025-08-30 11:24 | DVHOP2 ---
Operative Report - 2 Report Details Date: 08/30/25 Preop Diagnosis: Painful Left knee hardware Postop Diagnosis: Painful Left knee hardware, vastus medialis tear Surgeon: Mukesh Almazan MD Anesthesiologist: Kevin YI Anesthesia: Mac, Local Consent: The patient was informed of the risks and benefits of the procedure. These include but are not limited to complications of anesthesia, postoperative infection, incomplete relief of symptoms, recurrence of symptoms, damage to blood vessels, nerves and tendons, deep venous thrombosis, pulmonary embolism and possible need for repeat surgery in the future. Estimated Blood Loss: 5 cc Indications for Surgery: displaced left knee hardware/ vastus medialis tear Name of Procedure Performed 1. Left knee hardware removal; 2. Left vastus medial tendon repair; 3. Intraop fluoroscopy Procedure Details Procedure Details: The patient was brought to the operating room and placed supine on the operating table. After induction of anesthesia, the left lower extremity was prepped and draped in the usual sterile fashion. A time-out was performed to confirm patient, procedure, and site. A longitudinal/oblique incision was made over the palpable medial screw head at the left knee. Dissection was carried down through subcutaneous tissue, taking care to protect the saphenous nerve and vein. The screw head was identified and exposed. Noted to have a tear through vastus. There was no evidence of surrounding infection, bony overgrowth, or cold-welding. A compatible screwdriver was used to engage the screw head. The screw was removed without difficulty. The screw was inspected and found to be intact. The wound was irrigated with copious normal saline. Vastus repaired with fiberwire. Hemostasis was achieved. The wound was closed in layers with 0-vicryl for deep tissue, 4-0 Monocryl for skin and a sterile dressing was applied. Condition Fair Disposition Still a Patient MUKESH ALMAZAN MD Aug 30, 2025 11:24
[2025-08-30] MEDS ORDERED: fentaNYL CITRATE 100 MCG/2 ML VL ONE (11:27)
[2025-08-30] MEDS ORDERED: MIDAZOLAM HCL 2MG/2ML 2ml VIAL (1mg/ml) ONE (11:27)
[2025-08-30] MEDS: LIDOCAINE W/ EPINEPHRINE 1% 20ML VIAL ONE (11:30)
[2025-08-30] MEDS: BUPIVACAINE HCL 0.25% P/F 10 ML VIAL ONE (11:30)
[2025-08-30] MEDS ORDERED: PROPOFOL 10 MG/ML 20 ML IV ONE (11:47)
--- NOTE | 2025-08-30 13:26 | DVH ---
C-ARM FLUOROSCOPY: PROCEDURE: Fluoroscopic image of the left knee FLUOROSCOPY TIME: 2.7 seconds Air Kerma: 0.04 mgy FINDINGS: Spot intraoperative C arm radiographs demonstrating medial and lateral plate and screw fixation of th e distal left femur. IMPRESSION: 1. Please refer to surgical report for detailed findings.
--- NOTE | 2025-08-30 13:26 | DVH ---
CLINICAL INDICATION: HARDWARE REMOVAL LT KNEE TECHNIQUE: XY L KNEE 2V XRAY Comparison: CT CT L KNEE WO CONTRAST on DOS: 08/28/25, XY L KNEE 3V XRAY on DOS: 08/28/25 FINDINGS/IMPRESSION: : Single fluoroscopic image of the left knee demonstrates medial and lateral plate and multiple screw f ixation of the distal femur. Total radiation 0.04 mGy
[2025-08-30] MEDS: ceFAZolin 1GM/50ML 50 ML IV SCH (14:08)
[2025-08-31] VITALS (8 sets, daily range): BP systolic 99–120; BP diastolic 56–68; PULSE 51–83; RESP 16–19; TEMP 97–98.6; O2SAT 94–97
--- NOTE | 2025-08-31 11:56 | DVHPN2 ---
Reviewed: Care Plan, H&P, Labs, Medications, Previous Orders, Radiology Changes from previous H/P or p: No Changes Eyes: No Pain, No Vision change, No Conjunctivae inflammation, No Eyelid inflammation, No Other, No Redness ENT: No Ear pain, No Ear discharge, No Nose pain, No Nose discharge, No Nose congestion, No Mouth pain, No Mouth swelling, No Throat pain, No Throat swelling, No Other Cardiovascular: No Chest Pain, No Palpitations, No Orthopnea, No Paroxysmal Noc. Dyspnea, No Edema, No Lt Headedness, No Other Respiratory: No Cough, No Dry, No Shortness of breath, No SOB with excertion, No Wheezing, No Hemoptysis, No Pleuritic Pain, No Sputum, No Other Gastrointestinal: No Nausea, No Vomiting, No Abdominal Pain, No Diarrhea, No Constipation, No Melena, No Hematochezia, No Other Genitourinary: No Dysuria, No Frequency, No Incontinence, No Hematuria, No Retention, No Other Musculoskeletal: other (Left knee screw protrusion); No neck pain, No shoulder pain, No arm pain, No back pain, No hand pain, No leg pain, No foot pain Skin: No Rash, No Lesions, No Jaundice, No Bruising, No Other Objective Vitals Vital Signs Date Time Temp Pulse Resp B/P (MAP) Pulse Ox O2 Delivery O2 Flow Rate FiO2 08/31/25 09:00 98.1 78 19 110/67 (81) 97 98.1 08/30/25 20:00 Nasal Cannula* 2 28 Intake/Output Intake and Output 08/31/25 07:00 Intake Total 670 ml Balance 670 ml Intake Oral 520 ml IV Total 150 ml # Voids 3 # Bowel Movements 3 Medications Current Medications Medications Dose Ordered Sig/Josafat Route Start Time Stop Time Status Last Admin Dose Admin Risperidone 1 mg DAILY PO 08/29/25 10:00 08/31/25 10:41 1 MG Lorazepam 0.5 mg Q8HP PRN IV 08/28/25 19:30 Sodium Chloride 10 ml Q8HR IV 08/28/25 22:00 08/31/25 06:22 10 ML Acetaminophen/ Hydrocodone Bitart 1 tab Q4HP PRN PO 08/28/25 19:30 Ondansetron HCl 4 mg Q4HP PRN IV 08/28/25 19:30 Docusate Sodium 100 mg BIDPRN PRN PO 08/28/25 19:30 Enoxaparin Sodium 30 mg DAILY SC 08/29/25 10:00 08/31/25 10:45 30 MG Acetaminophen 650 mg Q6HP PRN PO 08/28/25 19:30 Nitroglycerin 0.4 mg Q5MINP PRN SL 08/28/25 20:15 Morphine Sulfate 2 mg Q30M PRN IV 08/28/25 20:15 Cefazolin Sodium 50 ml @ 100 mls/hr Q8HR IV 08/30/25 14:00 08/31/25 13:59 08/31/25 06:22 100 MLS/HR Laboratory Results Laboratory Tests 08/29/25 05:11 Labs and/or images reviewed: Labs reviewed by me, Image(s) reviewed by me Assessment/Plan Assessment/Plan Surgical complication hardware protruding from the left knee: Status post Left knee hardware removal; . Left vastus medial tendon repair by ortho Dr. Wheatley on 08-30-25 Altered mental status History of ORIF left distal femur [facility] 03/2025 Generalized weakness Other intraoperative and postprocedural complications and disorders of the musculoskeletal system Anemia Anxiety Cancer Dementia Depression History of seizures Patient came from residential facility Time spent 50 minutes Advanced care planning time 20 minutes Patient is full code Plan discussed with: Patient Date of Service: Aug 31, 2025 Billing Provider: JOON HAMPTON MD Common Visit Codes: [id number] INP/OBS CARE(HIGH) JOON HAMPTON MD Aug 31, 2025 11:56
[2025-08-31] MEDS: LORazepam 2MG/ML-1ML VIAL IV PRN (15:22)
[2025-09-01 05:00] VITALS: BP 120/61; PULSE 70; RESP 16; TEMP 97.1; O2SAT 99
[2025-09-01 08:00] VITALS: PULSE 68
[2025-09-01 08:44] VITALS: BP 105/60; PULSE 63; RESP 16; TEMP 98.6; O2SAT 98
--- NOTE | 2025-09-01 11:12 | DVHPN2 ---
Reviewed: Care Plan, H&P, Labs, Medications, Previous Orders, Radiology Changes from previous H/P or p: No Changes Eyes: No Pain, No Vision change, No Conjunctivae inflammation, No Eyelid inflammation, No Other, No Redness ENT: No Ear pain, No Ear discharge, No Nose pain, No Nose discharge, No Nose congestion, No Mouth pain, No Mouth swelling, No Throat pain, No Throat swelling, No Other Cardiovascular: No Chest Pain, No Palpitations, No Orthopnea, No Paroxysmal Noc. Dyspnea, No Edema, No Lt Headedness, No Other Respiratory: No Cough, No Dry, No Shortness of breath, No SOB with excertion, No Wheezing, No Hemoptysis, No Pleuritic Pain, No Sputum, No Other Gastrointestinal: No Nausea, No Vomiting, No Abdominal Pain, No Diarrhea, No Constipation, No Melena, No Hematochezia, No Other Genitourinary: No Dysuria, No Frequency, No Incontinence, No Hematuria, No Retention, No Other Musculoskeletal: other (Left knee screw protrusion); No neck pain, No shoulder pain, No arm pain, No back pain, No hand pain, No leg pain, No foot pain Skin: No Rash, No Lesions, No Jaundice, No Bruising, No Other Objective Vitals Vital Signs Date Time Temp Pulse Resp B/P (MAP) Pulse Ox O2 Delivery O2 Flow Rate FiO2 09/01/25 08:44 98.6 63 16 105/60 (75) 98 98.6 08/31/25 20:00 Room Air* 0 21 Intake/Output Intake and Output 09/01/25 07:00 Intake Total 885 ml Balance 885 ml Intake Oral 885 ml # Voids 3 # Bowel Movements 2 Medications Current Medications Medications Dose Ordered Sig/Josafat Route Start Time Stop Time Status Last Admin Dose Admin Risperidone 1 mg DAILY PO 08/29/25 10:00 08/31/25 10:41 1 MG Lorazepam 0.5 mg Q8HP PRN IV 08/28/25 19:30 08/31/25 15:22 0.5 MG Sodium Chloride 10 ml Q8HR IV 08/28/25 22:00 09/01/25 06:22 10 ML Acetaminophen/ Hydrocodone Bitart 1 tab Q4HP PRN PO 08/28/25 19:30 Ondansetron HCl 4 mg Q4HP PRN IV 08/28/25 19:30 Docusate Sodium 100 mg BIDPRN PRN PO 08/28/25 19:30 Enoxaparin Sodium 30 mg DAILY SC 08/29/25 10:00 08/31/25 10:45 30 MG Acetaminophen 650 mg Q6HP PRN PO 08/28/25 19:30 Nitroglycerin 0.4 mg Q5MINP PRN SL 08/28/25 20:15 Morphine Sulfate 2 mg Q30M PRN IV 08/28/25 20:15 Laboratory Results Laboratory Tests 08/29/25 05:11 Labs and/or images reviewed: Labs reviewed by me, Image(s) reviewed by me Assessment/Plan Assessment/Plan Surgical complication hardware protruding from the left knee: Status post Left knee hardware removal; . Left vastus medial tendon repair by ortho Dr. Wheatley on 08-30-25 Altered mental status History of ORIF left distal femur [facility] 03/2025 Generalized weakness Other intraoperative and postprocedural complications and disorders of the musculoskeletal system Anemia Anxiety Cancer Dementia Depression History of seizures Patient is full code RN Becka De La Paz at the bedside Advised the patient that she will be discharged back to [facility] hospice per wishes of her sister Kayla and she agrees Plan discussed with: Patient Date of Service: Sep 01, 2025 Billing Provider: JOON HAMPTON MD Common Visit Codes: [id number] INP/OBS CARE(HIGH) JOON HAMPTON MD Sep 01, 2025 11:12
--- NOTE | 2025-09-01 11:17 | DVHDS2 ---
Discharge Summary Date of Admission Aug 28, 2025 at 20:10 Date of Discharge: Sep 01, 2025 Admitting Diagnosis Protruding left knee hardware Wounds: Removal of the protruding left knee hardware Labs/Diagnostic Data: Laboratory Results Test 08/29/25 11:40 08/29/25 05:11 Prothrombin Time 11.0 sec (9.3-11.8) Prothrombin Time INR 1.04 (0.9-1.15) White Blood Count 7.0 10^3/uL (4.4-10.8) Red Blood Count 4.78 10^6/uL (4.0-5.20) Hemoglobin 14.4 g/dL (12.2-16.2) Hematocrit 41.5 % (36.0-46.0) Mean Corpuscular Volume 86.8 fL (80.0-100.0) Mean Corpuscular Hemoglobin 30.1 pg (28.0-32.0) Mean Corpuscular Hemoglobin Concent 34.6 g/dL (32.0-36.0) Red Cell Distribution Width 14.5 % (11.8-14.3) Platelet Count 285 10^3/uL (140-450) Mean Platelet Volume 7.3 fL (6.9-10.8) Neutrophils (%) (Auto) 74.0 % (37.0-80.0) Lymphocytes (%) (Auto) 14.0 % (10.0-50.0) Monocytes (%) (Auto) 9.9 % (0.0-12.0) Eosinophils (%) (Auto) 1.5 % (0.0-7.0) Basophils (%) (Auto) 0.6 % (0.0-2.0) Neutrophils # (Auto) 5.1 10 ^3/uL (1.6-8.6) Lymphocytes # (Auto) 1.0 10 ^3/uL (0.4-5.4) Monocytes # (Auto) 0.7 10 ^3/uL (0-1.3) Eosinophils # (Auto) 0.1 10 ^3/uL (0-0.8) Basophils # (Auto) 0 10 ^3/uL (0-0.2) Nucleated Red Blood Cells 0.1 % Sodium Level 142 mmol/L (136-145) Potassium Level 3.5 mmol/L (3.5-5.1) Chloride Level 108 mmol/L (98-107) Carbon Dioxide Level 23 mmol/L (20-31) Anion Gap 11 (5-15) Blood Urea Nitrogen 10 mg/dL (9-23) Creatinine 0.39 mg/dL (0.550-1.02) Glomerular Filtration Rate Calc 101 mL/min (>90) BUN/Creatinine Ratio 25.6 (10.0-20.0) Serum Glucose 89 mg/dL (74-106) Calcium Level 9.4 mg/dL (8.7-10.4) Total Bilirubin 0.6 mg/dL (0.2-1.0) Aspartate Amino Transferase (AST) 13 U/L (13-40) Alanine Aminotransferase (ALT) 16 U/L (7-40) Alkaline Phosphatase 100 U/L (46-116) Total Protein 6.3 g/dL (5.7-8.2) Albumin 3.9 g/dL (3.2-4.8) Other Laboratory Tests 08/29/25 05:11 Brief Hx & Hospital Course: 79-year-old female with a history of anemia anxiety cancer dementia depression seizures history of ORIF left distal femur [facility] March 2025 burden by family for protruding left knee hardware. Hospice was revoked and she was admitted underwent removal of protruding left knee hardware with the left vastus medial tendon repair by orthopedic Dr Almazan on 08/30/2025. Postop course uneventful. Patient's sister Kayla requesting patient to be discharged back to [facility] hospice discharged. Prescription for pain medications transmitted to the pharmacy Consults/Reason for consult Orthopedic Dr Almazan Operations or Procedures Removal of protruding left knee hardware Condition at Discharge: Fair Final Diagnosis/Problems List Surgical complication hardware protruding from the left knee: Status post Left knee hardware removal; . Left vastus medial tendon repair by ortho Dr. Wheatley on 08-30-25 Altered mental status History of ORIF left distal femur [facility] 03/2025 Generalized weakness Other intraoperative and postprocedural complications and disorders of the musculoskeletal system Anemia Anxiety Cancer Dementia Depression History of seizures Discharge Disposition: Hospice - Home Discharge Instruct/Medications Diet: Regular Activity: Bed rest Follow Up/Referral: Follow up with the hospice Dr Hoffman all previous home meds Medications: Transmitted to pharmacy Scheduled Ergocalciferol (Vitamin D 55021 Unit), 50,000 UNIT PO QWEEKLY, (Reported) Ferrous Sulfate (Ferrous Sulfate), 325 MG PO DAILY, (Reported) Risperidone (Risperidone), 1.5 TAB PO HS, (Reported) Scheduled PRN Acetaminophen (Tylenol Extra Strength), 500 MG PO Q6HP PRN for PAIN SCALE 1 THRU 6, (Reported) Lorazepam (Ativan Tablet), 1 TAB PO Q12HP PRN for ANXIETY, (Reported) Senna (Senokot), 8.6 MG PO DAILY PRN for FOR CONSTIPATION, (Reported) 39 (Time taken for discharge summary 39 minutes) Discharge Statement: "Patient was advised to return to the ER or call 911 if any headaches, dizziness, shortness of breath, chest pain, abdominal pain, bleeding, fevers, or worsening of medical condition. Patient was counseled about treatment plan, medications, possible side effects, patientverbalized understanding. All questions were answered to the best of my ability. This discharge took greater then 30 minutes in planning, reviewing documentation, counseling the patient, and discussing with other team members." ASSESSMENT ASSESSMENT Hospital Course Uneventful Assessment Surgical complication hardware protruding from the left knee: Status post Left knee hardware removal; . Left vastus medial tendon repair by ortho Dr. Wheatley on 08-30-25 Altered mental status History of ORIF left distal femur [facility] 03/2025 Generalized weakness Other intraoperative and postprocedural complications and disorders of the musculoskeletal system Anemia Anxiety Cancer Dementia Depression History of seizures Date of Service: Sep 01, 2025 Billing Provider: JOON HAMTPON MD Common Visit Codes: 04299-CGV/OBS DISCH DAY >30min JOON HAMPTON MD Sep 01, 2025 11:17
[2025-09-01] MEDS ORDERED: HYDR-4902 PO (11:19)
[2025-09-01 13:19] VITALS: BP 108/69; PULSE 60; RESP 16; TEMP 98.2; O2SAT 99
[2025-09-01 15:14] VITALS: BP 108/69; PULSE 60; RESP 16; TEMP 98.2; O2SAT 99
== END 2025-09-01 16:31 | disposition hospice, home (50) | DRG 500 ==
LOC: ER 16:08 → EDBD 16:08 → OVERFLOW 20:10 → TELE-EAST 22:00
PROVIDERS: ADMIT Family Medicine; ATTEND Family Medicine
PROC: 0LQM0ZZ Repair Left Upper Leg Tendon, Open Approach (ICD-10-PCS; 2025-08-30)
PROC: 0SP Lower Joints, Removal (ICD-10-PCS; principal; 2025-08-30 11:24)
DX: T84.093A Other mechanical complication of internal left knee prosthesis, initial encounter (principal); G93.41 Metabolic encephalopathy; F03.94 Unspecified dementia, unspecified severity, with anxiety; D64.9 Anemia, unspecified; F32.A Depression, unspecified; M96.89 Other intraoperative and postprocedural complications and disorders of the musculoskeletal system; F41.9 Anxiety disorder, unspecified; Z80.0 Family history of malignant neoplasm of digestive organs; Z88.8 Allergy status to other drugs, medicaments and biological substances; Z82.3 Family history of stroke; Y92.89 Other specified places as the place of occurrence of the external cause; Y83.8 Other surgical procedures as the cause of abnormal reaction of the patient, or of later complication, without mention of misadventure at the time of the procedure
CPT/HCPCS: 36415; 71045; 73560; 73562; 73700; 76000; 80053; 85025; 85610; 93005; 96374; G0378; J1100; J2250; J2704; J3490